=== PATIENT | male | born 1955 | race Caucasian/White ===

== ENCOUNTER 2019-09-19 03:49 | Inpatient (IN) | payer MEDICARE, SELFPAY ==
[2019-09-19] VITALS (8 sets, daily range): BP systolic 139–158; BP diastolic 76–96; PULSE 73–101; RESP 16–24; TEMP 36.3–37.2; O2SAT 90–98; BMI 33.7
--- NOTE | ~2019-09-19 | CT_ITS ---
EXAMINATION: CT abdomen pelvis w con DATE: 09/19/2019 05:08 INDICATION: Left-sided abdominal pain TECHNIQUE: Computed tomography (CT) of the abdomen and pelvis was performed with 100 cc Omnipaque 350 intravenous contrast. Automated exposure control and iterative reconstruction technique were employe d. Exam dose: 1296.68 mGy-cm total exam DLP. COMPARISON: 10/31/2014 CT abdomen pelvis FINDINGS: There is atelectasis involving both lung bases, including lingula and both lower lobes. Normal heart size. No pericardial or pleural effusion. Diffuse hepatic steatosis. No hepatic, splenic or pancreatic space-occupying mass lesion is evident. The gallbladder is distended but there is no gallbladder wall thickening. There is peripancreatic fluid and stranding and fluid along the right anterior pararenal fascia duode num.. There is heterogeneous enhancement of the pancreas, especially in the pancreatic head and uncin ate process but no definite areas of nonenhancement suggesting necrosis. No pseudocyst is identified. No bile duct or pancreatic duct dilatation. Normal morphology of the adrenal glands. No renal mass lesion or urinary tract calculus or hydrourete ronephrosis. The urinary bladder and prostate gland are unremarkable. There is atherosclerotic calcification of the abdominal aorta and iliac arteries but no aneurysm. No intraperitoneal or retroperitoneal or pelvic mass lesion or adenopathy or ascites is noted otherwi se. Mild diverticulosis of the left and right colon; no CT evidence of diverticulitis. Normal appendix. No suspicious osteolytic or osteoblastic lesions are noted. Prominent degenerative disc disease at L4 -5 and particularly L5-S1. Diffuse idiopathic skeletal hyperostosis of the thoracolumbar spine. IMPRESSION: Acute pancreatitis Diffuse hepatic steatosis Diverticulosis of the colon; no CT evidence of diverticulitis Reviewed, dictated and finalized at [facility]. Reviewed, dictated and finalized at location [facility]. H HANDLE ASSEMBLER
--- NOTE | ~2019-09-19 | XR_ITS ---
EXAMINATION: XR abdomen/kub 1V DATE: 09/20/2019 14:44 INDICATION: Abdominal distention. Acute pancreatitis. TECHNIQUE: A supine view of the abdomen on 2 radiographs was obtained. COMPARISON: CT dated 09/19/2019 FINDINGS: No dilated loops of gas-filled bowel. Couple phleboliths in the right hemipelvis. Severe lumbar spond ylosis. IMPRESSION: 1. Nonspecific nonobstructive bowel gas pattern. Reviewed, dictated and finalized at location [facility]. NOMY RESEARCH MANAGER
--- NOTE | ~2019-09-19 | US_ITS ---
EXAMINATION: US right upper quadrant EXAM DATE: 09/19/2019 07:49 INDICATION: Pancreatitis. Clinical concern for gallstones. TECHNIQUE: Multiple grayscale and Doppler images of the abdomen right upper quadrant were obtained (b y a technologist who performed the scan) and subsequently reviewed. There is no prior study for dima rader. FINDINGS: Poorly visualized pancreas. Mildly echogenic liver parenchyma, hepatic steatosis. There are no foca l liver lesions identified. There is no evidence of intrahepatic biliary duct dilation. Portal mattie ous flow was seen in the hepatopedal, normal direction and has normal Doppler waveform. No right-maricarmen ed hydronephrosis. Common bile duct measures 3 mm, which is normal. The gallbladder is moderately distended with borderl ine gallbladder wall thickening, could be reactive given stated history of pancreatitis. No calcified cholelithiasis identified. Probably some gallbladder sludge. Technologist performing exam reports p hima did not demonstrate sonographic Man's sign. Please note that this sign is less reliable in patients who have received pain medication. IMPRESSION: 1. Hepatic steatosis. 2. Borderline gallbladder wall thickness probably reactive. 3. Possible gallbladder sludge. No stones. Reviewed, dictated and finalized at location B. NCIAL PROFESSIONAL
--- NOTE | 2019-09-19 04:14 | ED.ABDPAIN ---
HPI - Abdominal Pain General Chief Complaint: Abdominal Pain Stated Complaint: LLQ abd pain Time Seen by Provider: 09/19/19 03:52 Source: patient Mode of arrival: ambulatory Limitations: no limitations History of Present Illness HPI narrative: 63 yo male with h/o chronic pain syndrome who presents with c/o severe left abdominal pain. Patient states at 11 pm last night he develop pain to entire lower abdomen. He states his pain has continued to worsen and his pain is now localized to left lower abdominal pain. Patient also reports he has pain is left lower back. He denies dysuria or hematuria. HE denies vomiting, diarrhea or constipation. He denies history of diverticulitis or kidney stones. He take oxycontin 30 mg BID and his last took his dose at 6 pm last night. MD elicited complaint: abdominal pain Onset (ago): hour(s) (5) Pain Consistency: constant Location: LUQ and LLQ Severity: severe Quality: cramping and stabbing Radiation: LUQ Exacerbating factors: movement Related Data Home Medications Medication Instructions Recorded Confirmed azelastine 0.05 % eye drops 1 drop EACH EYE BID 07/18/19 azelastine-fluticasone 137 mcg-50 1 spray NASAL BID 07/18/19 mcg/spray nasal spray duloxetine 60 mg capsule,delayed 60 mg PO DAILY 07/18/19 release gabapentin 600 mg tablet 600 mg PO TID 07/18/19 nortriptyline 10 mg capsule 10 mg PO HS 07/18/19 simvastatin 40 mg tablet 40 mg PO BID 07/18/19 oxycodone [OxyContin] 30 mg PO Q12H 09/19/19 Allergies Allergy/AdvReac Type Severity Reaction Status Date / Time pollen extracts Allergy Unknown Itchy eyes Verified 07/18/19 13:19 Review of Systems Review of Systems: All systems reviewed & are unremarkable except as noted in HPI and below Constitutional: Constitutional: Denies chills and Denies fever(s) Respiratory: Respiratory: Denies cough and Denies dyspnea Gastrointestinal: Gastrointestinal: Reports abdominal pain, Denies nausea and Denies vomiting Genitourinary: Genitourinary: Denies hematuria, Denies oliguria, Denies dysuria and Denies urinary frequency Musculoskeletal: Musculoskeletal: Reports back pain PMFSH Social History Social History Smoking status: Never smoker Alcohol intake: never Gender identity (if verbalized by the patient): Male Exam Const: General: alert and acute distress (patient writhing in pain , pale cool) Orientation/consciousness: patient oriented x3 Eyes: Conjunctivae: conjunctivae normal Pupils: Equal, round and reactive pupils present EOM: EOMs intact bilaterally Chest: Chest palpation & inspection: normal inspection of the chest and no tenderness Resp: Effort & Inspection: normal respiratory effort Auscultation: clear to auscultation bilaterally Cardio: Rate: regular rate Rhythm: regular rhythm Heart sounds: no murmurs GI: Inspection: distended GI Palp: Yes Soft to palpation, Yes Tenderness to palpation present (GI) (LUQ, LLQ), No Guarding due to palpation present (GI) and No Rebound tenderness present Auscultation: Hypoactive bowel sounds present Skin: General skin exam: pallor Neuro: General: patient oriented x3 and moves all extremities Course Consultations Consultation #1: Dr. Mccormack, hospitalist accepts patient to service for pancreatitis. Date: 09/19/19 Time: 05:48 Vital Signs Vital signs: Vital Signs Temperature 97.6 F 09/19/19 03:54 Pulse Rate 78 09/19/19 03:54 Respiratory Rate 24 H 09/19/19 03:54 Blood Pressure 158/85 H 09/19/19 03:54 Pulse Oximetry 96 09/19/19 03:54 Temperature 99.0 F 09/19/19 04:00 Pulse Rate 80 09/19/19 04:00 Respiratory Rate 22 H 09/19/19 05:41 Blood Pressure 145/76 H 09/19/19 06:27 Pulse Oximetry 98 09/19/19 05:41 MDM - Abdominal Pain Lab Data Attestation: I reviewed the patient's lab results. Result diagrams: 09/19/19 04:07 09/19/19 05:00
[2019-09-19 04:15] LABS: Basophils Percent Auto 0.3 % (0.2-1.2); Eosinophils Absolute Auto 0.1 K/mm3 (0-0.3); Eosinophils Percent Auto 1.2 % (0-4.4); Hematocrit 48.5 % (42.0-52.0); Hemoglobin 14.9 g/dL (14.0-18.0); Immature Granulocyte Absolute 0.03 K/mm3 (0.00-0.031); Immature Granulocyte Percent A 0.3 % (0-0.5); Lymphocytes Percent Auto 23.1 % (18.3-44.2); Mean Corpuscular HGB Conc 30.7 g/dl (32-36); Mean Corpuscular Hemoglobin 27.7 pg (26-34); Mean Corpuscular Volume 90.1 fl (80-100); Mean Platelet Volume 10.1 fl (7.4-10.4); Monocytes Absolute Auto 0.8 K/mm3 (0.1-0.6); Monocytes Percent Auto 8.2 % (2.6-8.5); Neutrophils Absolute Auto 6.4 K/mm3 (1.3-6.7); Neutrophils Percent Auto 66.9 % (45.5-73.1); Platelet Count Result 228 k/mm3 (150-375); Red Blood Count 5.38 M/mm3 (4.6-6.20); Red Cell Distribution Width 14.7 % (11.5-14.5); White Blood Count 9.5 K/mm3 (4.5-10.0)
[2019-09-19] MEDS: LACTATED RINGERS 1,000 ML 999 ML IV CONT (04:18)
[2019-09-19] MEDS: ONDANSETRON INJ 4 MG/2 ML VIAL IV PUSH ×2 (04:19→12:13)
[2019-09-19] MEDS: HYDROMORPHONE HCL 1 MG/ML INJ IV PUSH ×4 (04:20→09:15)
[2019-09-19 04:21] LABS: Add Urine Microscopic? YES; Appearance Urine Clear (Clear); Bilirubin Urine Negative (Negative); Blood Urine Negative (Negative); Color Urine Yellow (Yellow); Glucose Urine UA 3+ mg/dL (Negative); Ketones Urine Negative (Negative); Leukocyte Esterase Ur Negative LEU/UL (Negative); Mucus Urine Rare /lpf; Nitrate Urine Negative (Negative); Protein Urine Negative (Negative); RBC Urine 0-2 /hpf (0-2); Squamous Epithelial Cell Urine Rare /hpf (Few); Urobilinogen Urine Negative mg/dL (<2.0); WBC Urine 0-3 /hpf
[2019-09-19 04:31] LABS: Specific Grav Ur 1.035 (1.001-1.035)
[2019-09-19 05:03] LABS: Blood Urea Nitrogen 12 mg/dL (8-26); Estimated CRCL calculation 118 ml/min; Estimated Glomerular Filt Rate > 60
[2019-09-19 05:29] LABS: Lipase 25812 U/L (23-300)
[2019-09-19 05:30] LABS: Alanine Aminotransferase 168 U/L (4-50); Albumin Level 4.4 g/dL (3.5-5.1); Alkaline Phosphatase 133 U/L (38-126); Aspartate Amino Transferase 361 U/L (17-59); Bilirubin,Total 0.6 mg/dL (0.2-1.3); Blood Urea Nitrogen 13 mg/dL (9-20); Calcium 9.3 mg/dL (8.4-10.2); Carbon Dioxide 29 mmol/L (22-30); Chloride 99 mmol/L (98-107); Estimated CRCL calculation 136 ml/min; Estimated Glomerular Filt Rate > 60; Glucose 211 mg/dL (75-110); Potassium 3.6 mmol/L (3.4-5.0); Sodium 140 mmol/L (137-145)
--- NOTE | 2019-09-19 06:55 | ADMGEN ---
This patient, Stevo Solomon, was admitted to [facility] Surg Room 324-01. Patient/family oriented to hospital policies and general routines including ID bracelet, bed and alarms, visiting hours, pain management, procedures, bathroom and other care routines, personal items, smoking policy, room service/diet, and visiting hours. Valuables list has been completed. Information on how to activate the Rapid Response Team has been discussed. Patient/Family are encouraged to report perceived risks to care and to ask questions if they do not understand what they are told or what they should do.
[2019-09-19] MEDS: LACTATED RINGERS 1,000 ML 125 ML IV CONT ×2 (10:50→18:30)
[2019-09-19 11:56] LABS: Magnesium 1.6 mg/dL (1.6-2.3)
[2019-09-19] MEDS: HYDROMORPHONE HCL 2 MG/ML VIAL IV PUSH ×4 (12:07→22:29)
--- NOTE | 2019-09-19 14:54 | WPDGICN ---
Assessment and Plan Additional Plan This is a 63-year-old white male patient I am asked to see at the request of the hospitalist. Dr. Lopez. Patient in usual state of health till last evening at 10:00 a.m. he has had sudden onset of abdominal pain. Pain was extremely intense predominantly in the left side of his abdomen this prompted him to go to the emergency room. In the emergency room marked elevation of the lipase was noted. CT scan confirmed pancreatitis. Patient has never had pancreatitis before. He has no known history of gallstones. He denies alcohol intake. Past medical history is significant for chronic back pain. He has a history of diabetes. He has been treated for GE reflux. Had a colonoscopy that was unremarkable in August of 2018. Has been treated for perianal dermatitis. With good response to Flagyl. No known drug allergies. Current medications include aspirin. Metformin. Duloxetine. Gabapentin. Nortriptyline. Omeprazole 20 mg p.o. b.i.d.. OxyContin. And simvastatin. There have been no recent changes in his medications. Family history is significant his father had gallstones. Physical exam reveals him to be alert. He is anicteric. HEENT exam unremarkable. Lungs are clear to auscultation and percussion. Heart is without murmur or extra sounds. Abdomen is somewhat overweight. Bowel sounds are present abdomen is soft with no organomegaly. He has some tenderness predominantly in the left abdomen. Digital rectal exam is deferred. Laboratory work reveals CBC to be unremarkable. Electrolytes are unremarkable. Lipase 39928, total bilirubin 0.6 AST 361, ALT 168, alk-phos 133. CT scan suggest pancreatitis. Ultrasound reveals hepatic steatosis. No gallstones are identified. Impression 1. Acute pancreatitis. Most likely idiopathic in nature. I cannot exclude medications contributing in some fashion however. He has had no recent change in medications. 2. Elevated LFTs. Most likely related to his acute pancreatitis. Will continue to monitor his serum transaminases closely. 3. Chronic back pain. 4. Diabetes mellitus. Plan is for supportive care. IV fluid rehydration strongly encourage. Continue to monitor LFTs. Pain control at this point. I would keep patient NPO for tonight. Only advanced diet after nausea has lessened some period we will follow with you during this hospital stay. GI Consult Note Consult date/time: 09/19/19 14:54 HPI: Stevo Solomon is a 63 year old male [facility] Social History Social History Smoking status: Never smoker Alcohol intake: never Substance use: never Gender identity (if verbalized by the patient): Male Spiritual care concerns: No Agree to blood products: Yes Meds Home Medications and Allergies Home Medications Medication Instructions Recorded Confirmed Type azelastine 0.05 % eye drops 1 drop EACH EYE BID PRN 07/18/19 History azelastine-fluticasone 137 mcg-50 1 spray NASAL BID PRN 07/18/19 History mcg/spray nasal spray duloxetine 60 mg capsule,delayed 60 mg PO DAILY 07/18/19 History release gabapentin 600 mg tablet 600 mg PO TID 07/18/19 History nortriptyline 10 mg capsule 30 mg PO HS 07/18/19 09/19/19 History simvastatin 40 mg tablet 40 mg PO HS 07/18/19 09/19/19 History canagliflozin 150 mg-metformin 1 tablet PO ONCE #90 tablet 08/28/19 Rx 1,000 mg tablet aspirin [Adult Low Dose Aspirin] 81 mg PO DAILY 09/19/19 09/19/19 History omeprazole 20 mg PO BID 09/19/19 09/19/19 History oxycodone [OxyContin] 30 mg PO Q12H 09/19/19 09/19/19 History Allergies Allergy/AdvReac Type Severity Reaction Status Date / Time pollen extracts Allergy Unknown Itchy eyes Verified 07/18/19 13:19 Vital Signs Vital Signs - 24 hr 09/19/19 03:54 09/19/19 04:00 09/19/19 05:41 Temperature 36.4 C 37.2 C Pulse Rate 78 80 Respiratory Rate 24 H 16 22 H Blood Pressure 158/
--- NOTE | 2019-09-19 16:26 | PM.IMHP ---
H&P: HPI History of Present Illness Chief complaint: acute pancreatitis Narrative: Stevo Solomon is a 63 year old male With past medical history of occipital neuralgia for which patient is taking 30 mg OxyContin twice a day, diabetes and depression, patient states he was doing fine lying in his bed reading the book suddenly he developed the left-sided abdominal pain pain was quite severe denies any associated symptoms of nausea or vomiting patient presented emergency department further evaluation his lipase level were and 25,[address] scan of abdomen showed acute pancreatitis without necrosis, and started on IV fluids pain management, patient still having pain on and off what he describes likely spasm we have consulted GI for further recommendation as patient is more on the left side other than epigastric associated with a acute pancreatitis, patient had a colonoscopy in August 2018 essentially normal Review of Systems Review of Systems: All systems reviewed & are unremarkable except as noted in HPI and below PMFSH Social History Social History (Reviewed 07/18/19 @ 13:19 by Rosalind Valladares [facility]) Smoking status: Never smoker Alcohol intake: never Substance use: never Gender identity (if verbalized by the patient): Male Spiritual care concerns: No Agree to blood products: Yes Meds Home Medications and Allergies Home Medications Medication Instructions Recorded Confirmed Type azelastine 0.05 % eye drops 1 drop EACH EYE BID PRN 07/18/19 09/19/19 History azelastine-fluticasone 137 mcg-50 1 spray NASAL BID PRN 07/18/19 09/19/19 History mcg/spray nasal spray duloxetine 60 mg capsule,delayed 60 mg PO DAILY 07/18/19 09/19/19 History release gabapentin 600 mg tablet 600 mg PO TID 07/18/19 09/19/19 History nortriptyline 10 mg capsule 30 mg PO HS 07/18/19 09/19/19 History simvastatin 40 mg tablet 40 mg PO HS 07/18/19 09/19/19 History aspirin [Adult Low Dose Aspirin] 81 mg PO DAILY 09/19/19 09/19/19 History canagliflozin-metformin [Invokamet] 1 tablet PO DAILY 09/19/19 09/19/19 History omeprazole 20 mg PO BID 09/19/19 09/19/19 History oxycodone [OxyContin] 30 mg PO Q12H 02/11/20 02/11/20 History Allergies Allergy/AdvReac Type Severity Reaction Status Date / Time pollen extracts Allergy Unknown Itchy eyes Verified 07/18/19 13:19 Vital Signs Vital Signs - 24 hr 09/19/19 03:54 09/19/19 04:00 09/19/19 05:41 Temperature 97.6 F 99.0 F Pulse Rate 78 80 Respiratory Rate 24 H 16 22 H Blood Pressure 158/85 H 143/96 H 149/88 H Pulse Oximetry 96 95 98 09/19/19 06:27 09/19/19 06:45 09/19/19 14:00 Temperature 97.4 F L 98.1 F Pulse Rate 73 83 Respiratory Rate 22 H 16 Blood Pressure 145/76 H 144/86 H 144/77 H Pulse Oximetry 95 91 Exam Const: General: comfortable and no acute distress HENMT: General nose exam: Normal nares present Mouth: Yes moist mucous membranes Eyes: General: appearance normal, both eyes and all related structures Sclera: sclerae normal Neck: Neck: supple Resp: Effort & Inspection: normal respiratory effort Auscultation: clear to auscultation bilaterally Cardio: Rate: regular rate Rhythm: regular rhythm GI: Other: Bowel sounds are positive patient is tender on the left side Skin: General skin exam: normal color and no rashes or lesions noted Neuro: Speech: normal speech Sensory Exam: normal sensation Extrem: General: normal to inspection Psych: Affect: Anxious affect present H&P: Results Labs Labs: Short CBC 09/19/19 Range/Units 04:07 WBC 9.5 (4.5-10.0) K/mm3 Hgb 14.9 (14.0-18.0) g/dL Hct 48.5 (42.0-52.0) % Plt Count 228 (150-375) k/mm3 [facility] 09/19/19 09/19/19 04:08 05:00 Sodium 140 Potassium 3.6 Chloride 99 Carbon Dioxide 29 BUN 13 12 Creatinine 0.60 L 0.70 Glucose 211 H Calcium 9.3 Liver Function 09/19/19 Range/Units 04:08 Total Bilirubin 0.6 (0.2-1.3) mg/dL AST 361 H (17-59) U/L
[2019-09-19 18:42] LABS: Glucose Point of Care 156 (65-105)
[2019-09-20] MEDS: LACTATED RINGERS 1,000 ML 125 ML IV CONT ×3 (01:22→23:44)
[2019-09-20] MEDS: HYDROMORPHONE HCL 2 MG/ML VIAL IV PUSH ×7 (01:25→21:07)
[2019-09-20 06:00] VITALS: BP 158/65; PULSE 72; RESP 20; TEMP 37.2; O2SAT 100
[2019-09-20 06:28] LABS: Basophils Percent Auto 0.1 % (0.2-1.2); Hematocrit 50.8 % (42.0-52.0); Hemoglobin 16.5 g/dL (14.0-18.0); Immature Granulocyte Absolute 0.05 K/mm3 (0.00-0.031); Immature Granulocyte Percent A 0.3 % (0-0.5); Lymphocytes Absolute Auto 1.18 K/mm3 (0.9-3.2); Lymphocytes Percent Auto 8.1 % (18.3-44.2); Mean Corpuscular HGB Conc 32.5 g/dl (32-36); Mean Corpuscular Hemoglobin 28.4 pg (26-34); Mean Corpuscular Volume 87.3 fl (80-100); Mean Platelet Volume 9.7 fl (7.4-10.4); Monocytes Absolute Auto 1.1 K/mm3 (0.1-0.6); Monocytes Percent Auto 7.2 % (2.6-8.5); Neutrophils Absolute Auto 12.3 K/mm3 (1.3-6.7); Neutrophils Percent Auto 84.3 % (45.5-73.1); Platelet Count Result 233 k/mm3 (150-375); Red Blood Count 5.82 M/mm3 (4.6-6.20); Red Cell Distribution Width 15.8 % (11.5-14.5); White Blood Count 14.7 K/mm3 (4.5-10.0)
[2019-09-20 06:50] LABS: Alanine Aminotransferase 124 U/L (4-50); Albumin Level 3.9 g/dL (3.5-5.1); Alkaline Phosphatase 76 U/L (38-126); Aspartate Amino Transferase 86 U/L (17-59); Bilirubin,Total 0.7 mg/dL (0.2-1.3); Blood Urea Nitrogen 15 mg/dL (9-20); Calcium 8.4 mg/dL (8.4-10.2); Carbon Dioxide 30 mmol/L (22-30); Chloride 98 mmol/L (98-107); Estimated CRCL calculation 119 ml/min; Estimated Glomerular Filt Rate > 60; Glucose 133 mg/dL (75-110); Potassium 4.6 mmol/L (3.4-5.0); Sodium 138 mmol/L (137-145)
[2019-09-20 07:14] LABS: Lipase 2427 U/L (23-300)
[2019-09-20 08:00] VITALS: PULSE 72; RESP 20; O2SAT 100
--- NOTE | 2019-09-20 10:02 | WPDGIPROGNO ---
Progress Note: A&P Additional Plan Patient continues to notice rather significant abdominal pain. He gets significant relief with pain medications. No recent bowel movements. Physical exam reveals abdomen to be obese. Bowel sounds are present but decreased. Mild distention. Mild diffuse tenderness. No masses palpable. Labs revealed up lipase 2427, AST 86, ALT 127, WBC 14.7, hemoglobin 16.5 BUN 15, creatinine 0.7 Impression 1. Acute pancreatitis. This appears to be idiopathic. No specific precipitating event identified. Plan is for supportive care. IV fluid rehydration. Pain control. We will follow with you during this hospital stay . Subjective Date/time seen: 09/20/19 10:02 Objective Data Vital Signs Vital Signs: Vital Signs - 24 hr 09/19/19 14:00 09/19/19 20:42 09/19/19 22:00 Temperature 36.7 C 36.6 C Pulse Rate 83 101 H 100 Respiratory Rate 16 18 18 Blood Pressure 144/77 H 139/79 Pulse Oximetry 91 98 90 09/20/19 06:00 Temperature 37.2 C Pulse Rate 72 Respiratory Rate 20 Blood Pressure 158/65 H Pulse Oximetry 100 Intake/Output Intake/Output: Intake & Output 09/17/19 09/18/19 09/19/19 09/20/19 23:59 23:59 23:59 23:59 Intake Total 1000 1538 Output Total 4 Balance 1000 1534 Meds/Results Medications: Active Medications Generic Name Dose Route Start Last Admin Trade Name Freq PRN Reason Stop Dose Admin Hydromorphone HCl 2 mg 09/19/19 11:43 09/20/19 07:42 Dilaudid Inj IV PUSH 2 mg Q3H PRN Administration Pain Rated 7-10 Lactated Ringer's 1,000 mls @ 125 mls/hr 09/19/19 05:55 09/20/19 06:37 Lr - Lactated Ringers Iv IV CONT 125 mls/hr .Q8H MARU Infusion Ondansetron HCl 4 mg 09/19/19 05:53 09/19/19 12:13 Zofran Inj IV PUSH 4 mg Q4H PRN Administration Nausea Radiology Results: ITS Impressions Abdomen/Pelvis CT 09/19/19 06:46 IMPRESSION: Acute pancreatitis Diffuse hepatic steatosis Diverticulosis of the colon; no CT evidence of diverticulitis Upper Quadrant Ultrasound 09/19/19 08:11 IMPRESSION: 1. Hepatic steatosis. 2. Borderline gallbladder wall thickness probably reactive. 3. Possible gallbladder sludge. No stones. Labs Labs: Laboratory Results - last 24 hr 09/19/19 09/19/19 09/20/19 11:31 18:38 06:14 WBC 14.7 H RBC 5.82 Hgb 16.5 Hct 50.8 MCV 87.3 MCH 28.4 MCHC 32.5 RDW 15.8 H Plt Count 233 MPV 9.7 Immature Gran % (Auto) 0.3 Neut % (Auto) 84.3 H Lymph % (Auto) 8.1 L Warrick % (Auto) 7.2 Eos % (Auto) 0.0 Baso % (Auto) 0.1 L Lymph # (Auto) 1.18 Warrick # (Auto) 1.1 H Eos # (Auto) 0.0 Baso # (Auto) 0.0 Abs Immat Gran (auto) 0.05 H Absolute Neuts (auto) 12.3 H Absolute Nucleated RBC 0.0 Nucleated RBC % 0.0 Sodium Potassium Chloride Carbon Dioxide BUN Creatinine Estim Creat Clear Calc Estimated GFR Glucose POC Capillary Glucose 156 H Calcium Magnesium 1.6 Total Bilirubin AST ALT Alkaline Phosphatase Total Protein Albumin Lipase 09/20/19 06:14 WBC RBC Hgb Hct MCV MCH MCHC RDW Plt Count MPV Immature Gran % (Auto) Neut % (Auto) Lymph % (Auto) Warrick % (Auto) Eos % (Auto) Baso % (Auto) Lymph # (Auto) Warrick # (Auto) Eos # (Auto) Baso # (Auto) Abs Immat Gran (auto) Absolute Neuts (auto) Absolute Nucleated RBC Nucleated RBC % Sodium 138 Potassium 4.6 Chloride 98 Carbon Dioxide 30 BUN 15 Creatinine 0.70 Estim Creat Clear Calc 119 Estimated GFR > 60 Glucose 133 H POC Capillary Glucose Calcium 8.4 Magnesium Total Bilirubin 0.7 AST 86 H ALT 124 H Alkaline Phosphatase 76 Total Protein 7.0 Albumin 3.9 Lipase 2427 H
[2019-09-20 12:22] LABS: Glucose Point of Care 132 (65-105)
[2019-09-20 14:00] VITALS: BP 135/81; PULSE 101; RESP 20; TEMP 37.2; O2SAT 91
--- NOTE | 2019-09-20 14:08 | PM.IMPN ---
Progress Note: A&P Assessment and Plan (1) Acute pancreatitis: Qualifiers: Acute pancreatitis complication: unspecified Pancreatitis type: unspecified pancreatitis type Qualified Code(s): K85.90 - Acute pancreatitis without necrosis or infection, unspecified Code(s): K85.90 - Acute pancreatitis without necrosis or infection, unspecified Status: Acute Assessment and Plan: Stevo Solomon is a 63 year old male curremtly npo with iv fluids for acute pancreatitis, monitoring lipase levels, DR Anna tompkins (2) Occipital neuralgia: Code(s): M54.81 - Occipital neuralgia Status: Acute Assessment and Plan: Patient is taking OxyContin 30 mg b.i.d. patient is NPO be giving patient a lot did to mg every 3 hours as needed (3) Type 2 diabetes mellitus with diabetic polyneuropathy, without long-term current use of insulin: Code(s): E11.42 - Type 2 diabetes mellitus with diabetic polyneuropathy Status: Acute Assessment and Plan: Patient is NPO will monitor with sliding scale (4) Gastro-esophageal reflux disease without esophagitis: Code(s): K21.9 - Gastro-esophageal reflux disease without esophagitis Status: Acute Assessment and Plan: Will start the patient on PPI (5) Benign hypertension: Code(s): I10 - Essential (primary) hypertension Status: Acute Assessment and Plan: Will monitor patient blood pressure and plan (6) Abdominal distension: Code(s): R14.0 - Abdominal distension (gaseous) Status: Acute Assessment and Plan: KUB, to rule out ileus pt is already NPO with iv fluids Subjective Date/time seen: 09/20/19 14:08 Interval history: 63 year old man admitted with acute pancreatitis CT scan of abdomen showed acute pancreatitis without necrosis, lipase elevated at 2427, no history of drinking alcholol, us gb was shows possible sludge. Dr Anna tompkins, known history of chronic back pain. He has a history of diabetes. He has been treated for GERD. Pt had a colonoscopy before. Today pt abdomen looks distended KUB orderd, Pt takes invokamet for Dm ? i dont think that causes pancreatitis. I alvin order triglycerides in this patient. Review of Systems Review of Systems: All systems reviewed & are unremarkable except as noted in HPI and below Cardiovascular: Cardiovascular: Reports no additional cardiovascular complaints Respiratory: Respiratory: Reports no additional respiratory complaints Gastrointestinal: Comments: abdominal distension Musculoskeletal: Musculoskeletal: Reports no additional musculoskeletal complaints Exam Const: General: comfortable and no acute distress HENMT: General nose exam: Normal nares present Mouth: Yes moist mucous membranes Eyes: General: appearance normal, both eyes and all related structures Sclera: sclerae normal Neck: Neck: supple Resp: Effort & Inspection: normal respiratory effort Auscultation: clear to auscultation bilaterally Cardio: Rate: regular rate Rhythm: regular rhythm Skin: General skin exam: normal color and no rashes or lesions noted Neuro: Speech: normal speech Sensory Exam: normal sensation Extrem: General: normal to inspection Psych: Affect: Anxious affect present Objective Data Vital Signs Vital Signs: Vital Signs - 24 hr 09/19/19 20:42 09/19/19 22:00 09/20/19 06:00 Temperature 36.6 C 37.2 C Pulse Rate 101 H 100 72 Respiratory Rate 18 18 20 Blood Pressure 139/79 158/65 H Pulse Oximetry 98 90 100 09/20/19 08:00 Temperature Pulse Rate 72 Respiratory Rate 20 Blood Pressure Pulse Oximetry 100 Intake/Output Intake/Output: Intake & Output 09/17/19 09/18/19 09/19/19 09/20/19 23:59 23:59 23:59 23:59 Intake Total 1000 1538 Output Total 4 Balance 1000 1534 Meds/Results Medications: Active Medications Generic Name Dose Route Start Last Admin Trade Name Freq PRN Reason Stop Dose Admin Hydr
[2019-09-20] MEDS: ONDANSETRON INJ 4 MG/2 ML VIAL IV PUSH (17:47)
[2019-09-20 19:59] LABS: Glucose Point of Care 122 (65-105)
[2019-09-20 22:00] VITALS: BP 143/76; PULSE 102; RESP 20; TEMP 36.6; O2SAT 91
[2019-09-21] MEDS: HYDROMORPHONE HCL 2 MG/ML VIAL IV PUSH ×5 (00:09→12:29)
[2019-09-21 00:53] LABS: Glucose Point of Care 118 (65-105)
[2019-09-21 05:46] LABS: Glucose Point of Care 99 (65-105)
[2019-09-21 06:00] VITALS: BP 127/69; PULSE 100; RESP 20; TEMP 36.6; O2SAT 94
[2019-09-21 06:55] LABS: Hematocrit 45.5 % (42.0-52.0); Hemoglobin 14.2 g/dL (14.0-18.0); Mean Corpuscular HGB Conc 31.2 g/dl (32-36); Mean Corpuscular Volume 89.7 fl (80-100); Mean Platelet Volume 10.3 fl (7.4-10.4); Platelet Count Result 220 k/mm3 (150-375); Red Blood Count 5.07 M/mm3 (4.6-6.20); Red Cell Distribution Width 15.8 % (11.5-14.5); White Blood Count 13.1 K/mm3 (4.5-10.0)
[2019-09-21 07:12] LABS: Alanine Aminotransferase 70 U/L (4-50); Albumin Level 3.5 g/dL (3.5-5.1); Alkaline Phosphatase 70 U/L (38-126); Aspartate Amino Transferase 45 U/L (17-59); Bilirubin,Total 0.7 mg/dL (0.2-1.3); Blood Urea Nitrogen 17 mg/dL (9-20); Calcium 8.2 mg/dL (8.4-10.2); Carbon Dioxide 29 mmol/L (22-30); Chloride 98 mmol/L (98-107); Estimated CRCL calculation 137 ml/min; Estimated Glomerular Filt Rate > 60; Glucose 109 mg/dL (75-110); Lipase 520 U/L (23-300); Sodium 136 mmol/L (137-145)
[2019-09-21 07:13] LABS: Cholesterol 100 mg/dL (0-200); HDL Direct 31 mg/dL; Triglycerides 109 mg/dL (<150)
[2019-09-21 07:24] LABS: LDL Cholesterol Direct 50 mg/dL
[2019-09-21] MEDS: LACTATED RINGERS 1,000 ML 125 ML IV CONT ×2 (09:04→17:19)
[2019-09-21] MEDS: ONDANSETRON INJ 4 MG/2 ML VIAL IV PUSH ×2 (09:05→15:36)
--- NOTE | 2019-09-21 10:44 | WPDGIPROGNO ---
Progress Note: A&P Additional Plan Patient continues to complain of significant abdominal pain. He states that has lessened to some degree. He has begun to pass flatus. His abdomen is less painful today. Physical exam reveals her to be alert. Oriented x3. HEENT exam he is anicteric. Lungs are clear to auscultation and percussion. Heart is without murmur or extra sounds. Abdominal exam is somewhat obese. Bowel sounds are present soft diffusely tender. Lipase 520 today has decreased some. LFTs improving. Impression 1. Acute pancreatitis. Appears to be idiopathic in nature. Plan is to continue supportive care. IV fluid rehydration. Allow ice chips in liquids conservatively today. 2. Chronic back pain. 3. Sleep apnea. Plan is to continue IV fluid rehydration and pain control. Slowly reintroduce diet as bowel function returns. Subjective Date/time seen: 09/21/19 10:44 Objective Data Vital Signs Vital Signs: Vital Signs - 24 hr 09/20/19 14:00 09/20/19 22:00 09/21/19 06:00 Temperature 37.2 C 36.6 C 36.6 C Pulse Rate 101 H 102 H 100 Respiratory Rate 20 20 20 Blood Pressure 135/81 143/76 H 127/69 Pulse Oximetry 91 91 94 Intake/Output Intake/Output: Intake & Output 09/18/19 09/19/19 09/20/19 09/21/19 23:59 23:59 23:59 23:59 Intake Total 1000 3170 1060 Output Total 4 Balance 1000 3166 1060 Meds/Results Medications: Active Medications Generic Name Dose Route Start Last Admin Trade Name Freq PRN Reason Stop Dose Admin Hydromorphone HCl 2 mg 09/19/19 11:43 09/21/19 09:21 Dilaudid Inj IV PUSH 2 mg Q3H PRN Administration Pain Rated 7-10 Lactated Ringer's 1,000 mls @ 125 mls/hr 09/19/19 05:55 09/21/19 09:04 Lr - Lactated Ringers Iv IV CONT 125 mls/hr .Q8H MARU Administration Ondansetron HCl 4 mg 09/19/19 05:53 09/21/19 09:05 Zofran Inj IV PUSH 4 mg Q4H PRN Administration Nausea Radiology Results: ITS Impressions Abdomen/Pelvis CT 02/11/20 06:46 IMPRESSION: Acute pancreatitis Diffuse hepatic steatosis Diverticulosis of the colon; no CT evidence of diverticulitis Upper Quadrant Ultrasound 09/19/19 08:11 IMPRESSION: 1. Hepatic steatosis. 2. Borderline gallbladder wall thickness probably reactive. 3. Possible gallbladder sludge. No stones. Abdomen X-Ray 09/20/19 14:44 IMPRESSION: 1. Nonspecific nonobstructive bowel gas pattern. Labs Labs: Laboratory Results - last 24 hr 09/20/19 09/20/19 09/20/19 12:20 19:16 23:46 WBC RBC Hgb Hct MCV MCH MCHC RDW Plt Count MPV Sodium Potassium Chloride Carbon Dioxide BUN Creatinine Estim Creat Clear Calc Estimated GFR Glucose POC Capillary Glucose 132 H 122 H 118 H Calcium Total Bilirubin AST ALT Alkaline Phosphatase Total Protein Albumin Triglycerides Cholesterol LDL Cholesterol Direct HDL Direct Lipase 09/21/19 09/21/19 09/21/19 05:41 06:36 06:36 WBC 13.1 H RBC 5.07 Hgb 14.2 Hct 45.5 MCV 89.7 MCH 28.0 MCHC 31.2 L RDW 15.8 H Plt Count 220 MPV 10.3 Sodium 136 L Potassium 4.0 Chloride 98 Carbon Dioxide 29 BUN 17 Creatinine 0.60 L Estim Creat Clear Calc 137 Estimated GFR > 60 Glucose 109 POC Capillary Glucose 99 Calcium 8.2 L Total Bilirubin 0.7 AST 45 ALT 70 H Alkaline Phosphatase 70 Total Protein 7.0 Albumin 3.5 Triglycerides Cholesterol LDL Cholesterol Direct HDL Direct Lipase 520 H 09/21/19 06:36 WBC RBC Hgb Hct MCV MCH MCHC RDW Plt Count MPV Sodium Potassium Chloride Carbon Dioxide BUN Creatinine Estim Creat Clear Calc Estimated GFR Glucose POC Capillary Glucose Calcium Total Bilirubin AST ALT Alkaline Phosphatase Total Protein Albumin Triglycerides 109 Cholesterol
[2019-09-21 13:42] LABS: Glucose Point of Care 92 (65-105)
--- NOTE | 2019-09-21 13:44 | PM.IMPN ---
Progress Note: A&P Assessment and Plan (1) Acute pancreatitis: Qualifiers: Acute pancreatitis complication: unspecified Pancreatitis type: unspecified pancreatitis type Qualified Code(s): K85.90 - Acute pancreatitis without necrosis or infection, unspecified Code(s): K85.90 - Acute pancreatitis without necrosis or infection, unspecified Status: Acute Assessment and Plan: Stevo Solomon is a 63 year old male, admitted for acute pancreatitis, monitoring lipase levels, DR Anna tompkins, start clear liquid diet (2) Occipital neuralgia: Code(s): M54.81 - Occipital neuralgia Status: Acute Assessment and Plan: Patient is taking OxyContin 30 mg b.i.d., restart home medications (3) Type 2 diabetes mellitus with diabetic polyneuropathy, without long-term current use of insulin: Code(s): E11.42 - Type 2 diabetes mellitus with diabetic polyneuropathy Status: Acute Assessment and Plan: Restart liquid diet, monitor with sliding scale (4) Gastro-esophageal reflux disease without esophagitis: Code(s): K21.9 - Gastro-esophageal reflux disease without esophagitis Status: Acute Assessment and Plan: Will start the patient on PPI (5) Benign hypertension: Code(s): I10 - Essential (primary) hypertension Status: Acute Assessment and Plan: Will monitor patient blood pressure and plan (6) Abdominal distension: Code(s): R14.0 - Abdominal distension (gaseous) Status: Acute Assessment and Plan: KUB normal, no ileus, ordered laxatives Subjective Date/time seen: 09/21/19 13:44 Interval history: 63 year old man admitted with acute pancreatitis CT scan of abdomen showed acute pancreatitis without necrosis, lipase elevated at 2427, no history of drinking alcholol, us gb was shows possible sludge. Dr Anna tompkins, known history of chronic back pain. He has a history of diabetes. He has been treated for GERD. Pt had a colonoscopy before. Today pt abdomen looks mildly distended, KUB did not show ileus, pt adviced to walk more. Laxatives ordered as pts has not opened his bowel for 3 days. Review of Systems Review of Systems: All systems reviewed & are unremarkable except as noted in HPI and below Cardiovascular: Cardiovascular: Reports no additional cardiovascular complaints Respiratory: Respiratory: Reports no additional respiratory complaints Musculoskeletal: Musculoskeletal: Reports no additional musculoskeletal complaints Exam Const: General: comfortable and no acute distress HENMT: General nose exam: Normal nares present Mouth: Yes moist mucous membranes Eyes: General: appearance normal, both eyes and all related structures Sclera: sclerae normal Neck: Neck: supple Resp: Effort & Inspection: normal respiratory effort Auscultation: clear to auscultation bilaterally Cardio: Rate: regular rate Rhythm: regular rhythm GI: Other: Bowel sounds are positive patient is tender on the left side Distended Abdomen Skin: General skin exam: normal color and no rashes or lesions noted Neuro: Speech: normal speech Sensory Exam: normal sensation Extrem: General: normal to inspection Psych: Affect: Anxious affect present Objective Data Vital Signs Vital Signs: Vital Signs - 24 hr 09/20/19 14:00 09/20/19 22:00 09/21/19 06:00 Temperature 37.2 C 36.6 C 36.6 C Pulse Rate 101 H 102 H 100 Respiratory Rate 20 20 20 Blood Pressure 135/81 143/76 H 127/69 Pulse Oximetry 91 91 94 Intake/Output Intake/Output: Intake & Output 09/18/19 09/19/19 09/20/19 09/21/19 23:59 23:59 23:59 23:59 Intake Total 1000 3170 1060 Output Total 4 Balance 1000 3166 1060 Meds/Results Medications: Active Medications Generic Name Dose Route Start Last Admin Trade Name Freq PRN Reason Stop Dose Admin Docusate Sodium 100 mg 09/21/19 12:41 Colace Capsule PO Q12H PRN Constipation Hydromo
[2019-09-21 14:00] VITALS: BP 127/72; PULSE 96; RESP 18; TEMP 36.6; O2SAT 94
[2019-09-21] MEDS: HYDROMORPHONE HCL 2 MG/ML VIAL 3 MG IV PUSH ×2 (15:36→18:49)
[2019-09-21] MEDS: ASPIRIN 81 MG ENTERIC TABLET PO (15:43)
[2019-09-21] MEDS: DULOXETINE 60 MG CAPSULE.DR PO (15:43)
[2019-09-21] MEDS: PANTOPRAZOLE 40 MG TABLET PO (15:43)
[2019-09-21] MEDS: GABAPENTIN 300 MG CAPSULE 600 MG PO ×2 (15:44→22:31)
[2019-09-21 18:58] LABS: Lipase 144 U/L (23-300)
[2019-09-21] MEDS: NORTRIPTYLINE HCL 10 MG CAPSULE 30 MG PO (21:36)
[2019-09-21] MEDS: SIMVASTATIN 20 MG TABLET 40 MG PO (21:36)
[2019-09-21 22:00] VITALS: BP 149/79; PULSE 99; RESP 18; TEMP 36.3; O2SAT 90
[2019-09-22] MEDS: HYDROMORPHONE HCL 2 MG/ML VIAL 3 MG IV PUSH ×3 (03:33→11:18)
[2019-09-22] MEDS: LACTATED RINGERS 1,000 ML 125 ML IV CONT ×2 (04:04→11:18)
[2019-09-22 06:00] VITALS: BP 124/69; PULSE 90; RESP 19; TEMP 36.9; O2SAT 91
[2019-09-22] MEDS: GABAPENTIN 300 MG CAPSULE 600 MG PO ×2 (06:10→14:47)
[2019-09-22 06:21] LABS: Hematocrit 40.9 % (42.0-52.0); Hemoglobin 12.8 g/dL (14.0-18.0); Mean Corpuscular HGB Conc 31.3 g/dl (32-36); Mean Corpuscular Hemoglobin 28.3 pg (26-34); Mean Corpuscular Volume 90.5 fl (80-100); Mean Platelet Volume 9.9 fl (7.4-10.4); Platelet Count Result 208 k/mm3 (150-375); Red Blood Count 4.52 M/mm3 (4.6-6.20); Red Cell Distribution Width 15.4 % (11.5-14.5); White Blood Count 13.2 K/mm3 (4.5-10.0)
[2019-09-22 06:32] LABS: Alanine Aminotransferase 46 U/L (4-50); Albumin Level 3.2 g/dL (3.5-5.1); Alkaline Phosphatase 73 U/L (38-126); Aspartate Amino Transferase 36 U/L (17-59); Bilirubin,Total 0.6 mg/dL (0.2-1.3); Blood Urea Nitrogen 17 mg/dL (9-20); Calcium 8.2 mg/dL (8.4-10.2); Carbon Dioxide 29 mmol/L (22-30); Chloride 93 mmol/L (98-107); Estimated CRCL calculation 137 ml/min; Estimated Glomerular Filt Rate > 60; Glucose 95 mg/dL (75-110); Potassium 4.1 mmol/L (3.4-5.0); Sodium 136 mmol/L (137-145)
[2019-09-22 06:36] LABS: Lipase 48 U/L (23-300)
--- NOTE | 2019-09-22 09:15 | WPDGIPROGNO ---
Progress Note: A&P Additional Plan Patient feeling better today. Passing flatus. No signs of GI bleeding. Abdomen feel softer. Physical exam reveals patient to be alert. Vital signs stable. Better pain relief with pain shots. Abdomen is softer. Bowel sounds are present. Mild epigastric tenderness. Laboratory tests revealed WBC 13.2, hemoglobin 12.8, LFTs have normalized. Lipase now 48. Impression 1. Idiopathic acute pancreatitis. Clinically improving. Plan to advance diet. Increase activity. May discharge when diet tolerated and pain under control. 2. Chronic back pain. Subjective Date/time seen: 09/22/19 09:15 Objective Data Vital Signs Vital Signs: Vital Signs - 24 hr 09/21/19 14:00 09/21/19 22:00 09/22/19 06:00 Temperature 36.6 C 36.3 C L 36.9 C Pulse Rate 96 99 90 Respiratory Rate 18 18 19 Blood Pressure 127/72 149/79 H 124/69 Pulse Oximetry 94 90 91 Intake/Output Intake/Output: Intake & Output 09/19/19 09/20/19 09/21/19 09/22/19 23:59 23:59 23:59 23:59 Intake Total 1000 3170 2300 1550 Output Total 4 Balance 1000 3166 2300 1550 Meds/Results Medications: Active Medications Generic Name Dose Route Start Last Admin Trade Name Freq PRN Reason Stop Dose Admin Aspirin 81 mg 09/21/19 09:00 09/21/19 15:43 Aspirin Ec PO 81 mg DAILY MARU Administration Azelastine HCl 1 spray 09/21/19 14:14 Astelin NASAL 10/21/19 14:15 BID PRN Allergy Symptoms Docusate Sodium 100 mg 09/21/19 12:41 Colace Capsule PO Q12H PRN Constipation Duloxetine HCl 60 mg 09/21/19 09:00 09/21/19 15:43 Cymbalta PO 60 mg DAILY MARU Administration Fluticasone Propionate 1 spray 09/21/19 13:48 Flonase 0.05% Nasal [place] NASAL BID PRN Allergy Symptoms Gabapentin 600 mg 09/21/19 14:10 09/22/19 06:10 Neurontin PO 600 mg Q8HR MARU Administration Hydromorphone HCl 3 mg 09/21/19 12:41 09/22/19 06:34 Dilaudid Inj IV PUSH 3 mg Q3H PRN Administration Pain Rated 7-10 Lactated Ringer's 1,000 mls @ 125 mls/hr 09/19/19 05:55 09/22/19 04:04 Lr - Lactated Ringers Iv IV CONT 125 mls/hr .Q8H MARU Administration Non-Formulary Medication 1 drop 09/21/19 13:48 Azelastine EACH EYE BID PRN Allergic Symptoms Nortriptyline HCl 30 mg 09/21/19 21:00 09/21/19 21:36 Pamelor PO 30 mg HS MARU Administration Ondansetron HCl 4 mg 09/19/19 05:53 09/21/19 15:36 Zofran Inj IV PUSH 4 mg Q4H PRN Administration Nausea Oxycodone HCl 30 mg 09/21/19 21:00 09/21/19 21:41 Oxycontin Sr 12hr PO 30 mg Q12HR MARU Administration Pantoprazole Sodium 40 mg 09/21/19 09:00 09/21/19 15:43 Protonix PO 40 mg QAM MARU Administration Polyethylene Glycol 17 gm 09/22/19 09:00 Miralax PO QAM MARU Simvastatin 40 mg 09/21/19 21:00 09/21/19 21:36 Zocor PO 40 mg HS MARU Administration Radiology Results: ITS Impressions Abdomen/Pelvis CT 09/19/19 06:46 IMPRESSION: Acute pancreatitis Diffuse hepatic steatosis Diverticulosis of the colon; no CT evidence of diverticulitis Upper Quadrant Ultrasound 09/19/19 08:11 IMPRESSION: 1. Hepatic steatosis. 2. Borderline gallbladder wall thickness probably reactive. 3. Possible gallbladder sludge. No stones. Abdomen X-Ray 09/20/19 14:44 IMPRESSION: 1. Nonspecific nonobstructive bowel gas pattern. Labs Labs: Laboratory Results - last 24 hr 09/21/19 09/21/19 09/22/19 12:33 18:42 05:52 WBC 13.2 H RBC 4.52 L Hgb 12.8 L Hct 40.9 L MCV 90.5 MCH 28.3 MCHC 31.3 L RDW 15.4 H Plt Count 208 MPV 9.9 Sodium Potassium Chloride Carbon Dioxide BUN Creatinine Estim Creat Clear Calc Estimated GFR Glucose POC Capillary Glucose 92 Calcium Total Bilirubin AST ALT Alkaline Phosphatase Total Protein Albumin Lipase
[2019-09-22] MEDS: PANTOPRAZOLE 40 MG TABLET PO (09:24)
[2019-09-22] MEDS: DULOXETINE 60 MG CAPSULE.DR PO (09:24)
[2019-09-22] MEDS: polyethylene glycoL 3350 17 GM POWD.PACK PO (09:25)
[2019-09-22] MEDS: ASPIRIN 81 MG ENTERIC TABLET PO (09:25)
--- NOTE | 2019-09-22 12:56 | PM.DS ---
DS: Diagnosis Admitting Diagnosis Admitting Diagnosis: Acute pancreatitis without necrosis or infection, unspecified Discharge Diagnosis (1) Acute pancreatitis: Qualifiers: Acute pancreatitis complication: unspecified Pancreatitis type: unspecified pancreatitis type Qualified Code(s): K85.90 - Acute pancreatitis without necrosis or infection, unspecified Code(s): K85.90 - Acute pancreatitis without necrosis or infection, unspecified Status: Resolved Assessment and Plan: Stevo Solomon is a 63 year old male, admitted for acute pancreatitis, monitoring lipase levels, lipase has come down. Long discussion about causes of pancreatitis, veena is one unfortunately pt has been on this 4 years, he would like to discuss changing the medication with his PCP. TRiglyceride normal, no history of heavy alcholol use or GAllstones. (2) Occipital neuralgia: Code(s): M54.81 - Occipital neuralgia Status: Chronic Assessment and Plan: Patient is taking OxyContin 30 mg b.i.d., restart home medications (3) Type 2 diabetes mellitus with diabetic polyneuropathy, without long-term current use of insulin: Code(s): E11.42 - Type 2 diabetes mellitus with diabetic polyneuropathy Status: Chronic Assessment and Plan: Restart DM diet (4) Gastro-esophageal reflux disease without esophagitis: Code(s): K21.9 - Gastro-esophageal reflux disease without esophagitis Status: Chronic Assessment and Plan: Will start the patient on PPI (5) Benign hypertension: Code(s): I10 - Essential (primary) hypertension Status: Chronic Assessment and Plan: Continue home medications (6) Abdominal distension: Code(s): R14.0 - Abdominal distension (gaseous) Status: Acute Assessment and Plan: KUB normal, no ileus, ordered laxatives likley secondary to constipation, hopeful discharge after bowel movement. Encouraged walking today. DS: Summary Time Spent with Patient Time attestation: Total time spent providing and/or coordinating discharge services:38 minutes on day of discharge Exam Const: General: comfortable and no acute distress HENMT: General nose exam: Normal nares present Mouth: Yes moist mucous membranes Eyes: General: appearance normal, both eyes and all related structures Sclera: sclerae normal Neck: Neck: supple Resp: Effort & Inspection: normal respiratory effort Auscultation: clear to auscultation bilaterally Cardio: Rate: regular rate Rhythm: regular rhythm GI: Other: Bowel sounds are positive, mild abdominal distension Skin: General skin exam: normal color and no rashes or lesions noted Neuro: Speech: normal speech Sensory Exam: normal sensation Extrem: General: normal to inspection Psych: Affect: Anxious affect present DS: Data Data Completed and Pending Labs on day of discharge: Labs from last 24 hours 09/22/19 09/22/19 09/22/19 05:52 05:52 05:52 WBC 13.2 H RBC 4.52 L Hgb 12.8 L Hct 40.9 L MCV 90.5 MCH 28.3 MCHC 31.3 L RDW 15.4 H Plt Count 208 MPV 9.9 Sodium 136 L Potassium 4.1 Chloride 93 L Carbon Dioxide 29 BUN 17 Creatinine 0.60 L Estim Creat Clear Calc 137 Estimated GFR > 60 Glucose 95 POC Capillary Glucose Calcium 8.2 L Total Bilirubin 0.6 AST 36 ALT 46 Alkaline Phosphatase 73 Total Protein 6.0 L Albumin 3.2 L Lipase 48 09/21/19 09/21/19 18:42 12:33 WBC RBC Hgb Hct MCV MCH MCHC RDW Plt Count MPV Sodium Potassium Chloride Carbon Dioxide BUN Creatinine Estim Creat Clear Calc Estimated GFR Glucose POC Capillary Glucose 92 Calcium Total Bilirubin AST ALT Alkaline Phosphatase Total Protein Albumin Lipase 144 Discharge Plan Discharge Attending physician on discharge: Nusrat Mccormack Consulting prov
== END 2019-09-22 17:35 | disposition home or self-care (01) | DRG 440 ==
LOC: ANHED 05:51 → ANH3MEDSUR 06:30
PROVIDERS: Family Medicine; Admitting Provider Family Medicine; Emergency Provider General Practice; PCP Family Medicine; Visit Provider Family Medicine
DX: K85.90 Acute pancreatitis without necrosis or infection, unspecified (principal); M54.81 Occipital neuralgia; E11.42 Type 2 diabetes mellitus with diabetic polyneuropathy; K21.9 Gastro-esophageal reflux disease without esophagitis; I10 Essential (primary) hypertension; R14.0 Abdominal distension (gaseous); F32.9 Major depressive disorder, single episode, unspecified; G47.30 Sleep apnea, unspecified; E66.9 Obesity, unspecified; Z68.33 Body mass index [BMI] 33.0-33.9, adult
CPT/HCPCS: 36415; 74018; 74177; 76705; 80053; 80061; 81001; 83690; 83735; 85025; 85027; 96374; 96375; 96376; 99285; A9270; G0378; J1170; J2405; J7120; Q9967

== ENCOUNTER 2019-09-29 14:55 | Inpatient (IN) | payer MEDICARE, SELFPAY ==
--- NOTE | ~2019-09-29 | CT_ITS ---
EXAMINATION: CT abdomen pelvis w con DATE: 09/29/2019 17:49 INDICATION: Pancreatitis. Increasing pain. TECHNIQUE: Computed tomography (CT) of the abdomen and pelvis was performed with 100 cc Omnipaque 350 intravenous contrast. The dose-length product was 1351.26 mGy-cm. Automated exposure control and ite rative reconstruction technique were employed. COMPARISON: CT dated 09/19/2019 FINDINGS: Small pleural effusions. Bibasilar airspace disease, most likely atelectasis. Small supraumbilical ventral hernia containing fat. The liver, spleen, adrenal glands and right kidne y are unremarkable. There are left renal parapelvic cysts. No hydronephrosis. Nonobstructive bowel ga s pattern. There is increasing fluid and infiltration surrounding the pancreas. The pancreas is normally enhanci ng without evidence for necrosis. No definite pseudocyst formation. No discrete walled off fluid heydi ection to suggest abscess. IMPRESSION: 1. Progression of pancreatitis and surrounding inflammatory change. 2: Bibasilar atelectasis with small effusions. Reviewed, dictated and finalized at location [facility]. [facility]
[2019-09-29 15:06] VITALS: BP 156/75; PULSE 110; RESP 18; TEMP 36.1; O2SAT 95
[2019-09-29 15:23] LABS: Basophils Percent Auto 0.2 % (0.2-1.2); Eosinophils Absolute Auto 0.1 K/mm3 (0-0.3); Eosinophils Percent Auto 0.6 % (0-4.4); Hematocrit 41.9 % (42.0-52.0); Hemoglobin 13.1 g/dL (14.0-18.0); Immature Granulocyte Percent A 0.7 % (0-0.5); Lymphocytes Absolute Auto 1.41 K/mm3 (0.9-3.2); Lymphocytes Percent Auto 9.7 % (18.3-44.2); Mean Corpuscular HGB Conc 31.3 g/dl (32-36); Mean Corpuscular Hemoglobin 27.6 pg (26-34); Mean Corpuscular Volume 88.2 fl (80-100); Mean Platelet Volume 9.4 fl (7.4-10.4); Monocytes Absolute Auto 1.1 K/mm3 (0.1-0.6); Monocytes Percent Auto 7.7 % (2.6-8.5); Neutrophils Absolute Auto 11.8 K/mm3 (1.3-6.7); Neutrophils Percent Auto 81.1 % (45.5-73.1); Platelet Count Result 394 k/mm3 (150-375); Red Blood Count 4.75 M/mm3 (4.6-6.20); Red Cell Distribution Width 15.1 % (11.5-14.5); White Blood Count 14.5 K/mm3 (4.5-10.0)
[2019-09-29 15:32] LABS: Alanine Aminotransferase 27 U/L (4-50); Albumin Level 3.5 g/dL (3.5-5.1); Alkaline Phosphatase 110 U/L (38-126); Aspartate Amino Transferase 36 U/L (17-59); Bilirubin,Total 0.4 mg/dL (0.2-1.3); Blood Urea Nitrogen 7 mg/dL (9-20); Calcium 8.8 mg/dL (8.4-10.2); Carbon Dioxide 33 mmol/L (22-30); Chloride 91 mmol/L (98-107); Estimated CRCL calculation 118 ml/min; Estimated Glomerular Filt Rate > 60; Glucose 128 mg/dL (75-110); Lipase 67 U/L (23-300); Potassium 3.7 mmol/L (3.4-5.0); Sodium 136 mmol/L (137-145)
--- NOTE | 2019-09-29 17:13 | ED.ABDPAIN ---
HPI - Abdominal Pain General Chief Complaint: Abdominal Pain Stated Complaint: abd pain Time Seen by Provider: 09/29/19 17:13 Source: patient Mode of arrival: ambulatory Limitations: no limitations History of Present Illness HPI narrative: The pt is a 63 y/o male who presents to the ED c/o sharp, cramping LLQ ABD pain. Pt rates his pain as 7.5/10, and notes that it radiates up to the RUQ and the back. Pt states that he presented to this hospital 2 weeks ago and was admitted due to pancreatitis. He states that he was discharged one week ago. Pt notes that nothing improves his pain, but eating worsens his pain. Pt has noticed a color change to his stools, with them ranging from a dark nasima to black in color. He denies N/V/D, CP, SOB, dysuria, hematuria, fever, and chills. MD elicited complaint: abdominal pain Pertinent past history: other (Pancreatitis) Pain Consistency: constant Location: LLQ Quality: cramping and sharp Radiation: RUQ and back Exacerbating factors: eating Relieving factors: nothing Associated symptoms: other (Color change in stools ranging from a dark nasima to black in color) Related Data Home Medications Medication Instructions Recorded Confirmed azelastine-fluticasone 137 mcg-50 1 spray NASAL BID PRN 07/18/19 09/29/19 mcg/spray nasal spray duloxetine 60 mg capsule,delayed 60 mg PO DAILY 07/18/19 09/29/19 release gabapentin 600 mg tablet 600 mg PO TID 07/18/19 09/29/19 nortriptyline 10 mg capsule 30 mg PO HS 07/18/19 09/29/19 simvastatin 40 mg tablet 40 mg PO HS 07/18/19 09/29/19 aspirin [Adult Low Dose Aspirin] 81 mg PO DAILY 09/19/19 09/29/19 omeprazole 20 mg PO BID 09/19/19 09/29/19 oxycodone [OxyContin] 30 mg PO Q12H 09/19/19 09/29/19 metformin 1,000 mg PO DAILY 09/29/19 09/29/19 Allergies Allergy/AdvReac Type Severity Reaction Status Date / Time pollen extracts Allergy Unknown Itchy eyes Verified 07/18/19 13:19 Review of Systems Review of Systems: Narrative: Review of Systems Constitutional: Negative for fever and chills. Respiratory: Negative for shortness of breath. Cardiovascular: Negative for chest pain. Gastrointestinal: Positive for sharp, cramping LLQ ABD pain radiating to the RUQ and back. Positive for color change in stool, with it being dark nasima to black in color. Negative for nausea, vomiting, and diarrhea. Genitourinary: Negative for dysuria and hematuria. All systems reviewed & are unremarkable except as noted in HPI and below PMFSH Past Medical History Medical History (Updated 09/30/19 @ 16:59 by Pooja Oconnell PA-C) Acute pancreatitis Benign hypertension Gastro-esophageal reflux disease without esophagitis Mixed hyperlipidemia Obesity, unspecified Obstructive sleep apnea (adult) (pediatric) Occipital neuralgia Submandibular swelling Type 2 diabetes mellitus with diabetic polyneuropathy, without long-term current use of insulin Ventral hernia Surgical History Surgical History H/O ventral hernia repair Family History Family History (Updated 09/30/19 @ 09:39 by Pooja Oconnell PA-C) Father Diabetes mellitus Hypertension Family history of cardiovascular disease Family history of lung cancer Mother Family history of arthritis, Onset Age: 79 Social History Social History (Updated 09/30/19 @ 09:42 by Pooja Oconnell PA-C) Social History: Mr. Solomon lives at home with his . He has no pets. He sees Dr. Chun for primary care. 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 Smoking status: Never smoker Second hand tobacco smoke exposure: Yes Alcohol intake: never Substance use: never Living arrangements: with family Gender identity (if verbalized by the patient): Male Spiritual care concerns: No Agree to blood products: Yes Comments PCP: Dr. Chun Exam Narrative: Exam Narrative: Constitutional: Appears well-develo
[2019-09-29 17:21] VITALS: BP 136/84; PULSE 96; RESP 20; O2SAT 94
[2019-09-29 17:40] LABS: Add Urine Microscopic? YES; Appearance Urine Clear (Clear); Bilirubin Urine Negative (Negative); Blood Urine Negative (Negative); Color Urine Yellow (Yellow); Glucose Urine UA 1+ mg/dL (Negative); Ketones Urine Negative (Negative); Leukocyte Esterase Ur Negative LEU/UL (Negative); Mucus Urine Few /lpf; Nitrate Urine Negative (Negative); Protein Urine Negative (Negative); RBC Urine 0-2 /hpf (0-2); Specific Grav Ur 1.015 (1.001-1.035); Squamous Epithelial Cell Urine Rare /hpf (Few); WBC Urine 0-3 /hpf
[2019-09-29] MEDS: SODIUM CHLORIDE 0.9% IV 1,000 ML 999 ML IV CONT (18:37)
[2019-09-29] MEDS: KETOROLAC 30 MG/ML VIAL (*BKC) IV PUSH (18:38)
[2019-09-29 19:25] VITALS: BP 120/76; PULSE 91; RESP 16; O2SAT 95
--- NOTE | 2019-09-29 19:54 | ADMGEN ---
This patient, Stevo Solomon, was admitted to [facility] Surg Room 328-01. Patient/family oriented to hospital policies and general routines including ID bracelet, bed and alarms, visiting hours, pain management, procedures, bathroom and other care routines, personal items, smoking policy, room service/diet, and visiting hours. Valuables list has been completed. Information on how to activate the Rapid Response Team has been discussed. Patient/Family are encouraged to report perceived risks to care and to ask questions if they do not understand what they are told or what they should do.
[2019-09-29 20:24] VITALS: BP 123/65; PULSE 81; RESP 16; TEMP 36.7; O2SAT 100; BMI 32.3
[2019-09-29] MEDS: SODIUM CHLORIDE 0.9% IV 1,000 ML 125 ML IV CONT (20:50)
[2019-09-29 22:00] VITALS: BP 128/70; PULSE 87; RESP 16; TEMP 37.1; O2SAT 98
[2019-09-29] MEDS: NORTRIPTYLINE HCL 10 MG CAPSULE 30 MG PO (22:20)
[2019-09-29] MEDS: GABAPENTIN 300 MG CAPSULE 600 MG PO (22:23)
[2019-09-29 22:55] VITALS: PULSE 77; RESP 17; O2SAT 96
[2019-09-30] MEDS: SODIUM CHLORIDE 0.9% IV 1,000 ML 125 ML IV CONT (04:25)
[2019-09-30] MEDS: MORPHINE SULFATE 4 MG/ML INJ IV PUSH (04:26)
[2019-09-30 06:00] VITALS: BP 129/75; PULSE 82; RESP 16; TEMP 36.6; O2SAT 97
[2019-09-30] MEDS: GABAPENTIN 300 MG CAPSULE 600 MG PO ×3 (06:25→21:04)
[2019-09-30] MEDS: DULOXETINE 60 MG CAPSULE.DR PO (08:28)
--- NOTE | 2019-09-30 09:15 | PM.IMHP ---
H&P: HPI History of Present Illness Chief complaint: abd pain Narrative: Date of service of History and Physical: 09/30/2019 Stevo Solomon is a 63 year old male with a history of non-insulin dependent Diabetes Mellitus, occipital neuralgia, and obstructive sleep apnea, who presented to the emergency department via private vehicle on 09/29/2019 with abdominal pain. He describes abdominal pain as sharp and crampy, worse in the LLQ and spreading transversely across his abdomen to the RUQ. This radiates to the flanks and he describes a tight band-like sensation across his lower back. He describes this pain as a 6/10 currently and states pain can be somewhat alleviated by rocking back and forth in a seated position. He was previously hospitalized on 09/19/19 with similar pain and found to have pancreatitis. He was discharged on 09/22. He reports that since the initial episode on 09/19, the pain has not stopped. He believes it may have decreased, but reports persistent abdominal pain for 12 days. He denies vomiting. He reports he previously experienced nausea secondary to pain that was relieved with Zofran, but currently denies nausea. He has significantly decreased appetite and has not eaten anything in 2 days. He has regular bowel movements and has not had diarrhea. He takes stool softeners and laxatives and has had normal bowel movements since pain onset. He does report larger volumes of formed stool recently, with some being dark to almost black. He has noted blood on the toilet tissue, but also states he sees a GI doctor in [place] who is managing his hemorrhoids, and this is not a new issue. He is passing gas. He is urinating regularly and without difficulty. He reports difficulty sleeping due to pain. Review of Systems Review of Systems: Narrative: All systems reviewed & are unremarkable except as noted in HPI and below Constitutional: Constitutional: Reports no additional constitutional complaints Eyes: Eyes: Reports no additional eye complaints ENT: Reports Normal hearing present and Denies dysphagia Cardiovascular: Cardiovascular: Denies chest pain, Denies edema and Denies dyspnea Respiratory: Respiratory: Denies cough and Denies dyspnea Gastrointestinal: Gastrointestinal: Reports as per HPI Genitourinary: Genitourinary: Reports no additional male genitourinary complaints Musculoskeletal: Musculoskeletal: Reports back pain Integumentary/Breasts: Skin/Breast: Reports system reviewed and no additional complaints, except as docu Neurologic: Reports system reviewed and no additional complaints, except as documented Psychiatric: Psychiatric: Reports no additional psychiatric complaints Endocrine: Endocrine: Reports no additional endocrine complaints Hematologic/Lymphatic: Hematologic/Lymphatic: Reports no additional hematologic/lymphatic complaints [facility] Past Medical History Medical History (Updated 09/30/19 @ 17:46 by Pooja Oconnell PA-C) Acute pancreatitis Benign hypertension Gastro-esophageal reflux disease without esophagitis Mixed hyperlipidemia Obesity, unspecified Obstructive sleep apnea (adult) (pediatric) Occipital neuralgia Submandibular swelling Type 2 diabetes mellitus with diabetic polyneuropathy, without long-term current use of insulin Ventral hernia Surgical History Surgical History H/O ventral hernia repair Family History Family History (Updated 09/30/19 @ 09:39 by Pooja Oconnell PA-C) Father Diabetes mellitus Hypertension Family history of cardiovascular disease Family history of lung cancer Mother Family history of arthritis, Onset Age: 79 Social History Social History (Updated 09/30/19 @ 09:42 by Pooja Oconnell PA-C) Social History: Mr. Solomon lives at home with his . He has no pets. He sees Dr. Chun for primary care. 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 [facility] [place]
[2019-09-30] MEDS: LACTATED RINGERS 1,000 ML 125 ML IV CONT ×2 (11:28→22:24)
[2019-09-30] MEDS: PSYLLIUM POWDER PACKET 1 PACKET PO (11:28)
[2019-09-30] MEDS: HYDROMORPHONE HCL 1 MG/ML INJ IV PUSH ×2 (11:37→17:55)
[2019-09-30 14:00] VITALS: BP 126/70; PULSE 76; RESP 18; TEMP 36.6; O2SAT 95
[2019-09-30 18:01] LABS: Lactate Dehydrogenase 490 U/L (313-618)
[2019-09-30 18:08] LABS: Hemoglobin A1C 6.6 % (<5.7)
[2019-09-30] MEDS: NORTRIPTYLINE HCL 10 MG CAPSULE 30 MG PO (21:03)
[2019-09-30 22:00] VITALS: BP 142/70; PULSE 84; RESP 16; TEMP 36.9; O2SAT 97
[2019-09-30 22:40] VITALS: PULSE 75; RESP 18; O2SAT 97
[2019-09-30 23:20] LABS: Glucose Point of Care 95 (65-105)
[2019-10-01] MEDS: GABAPENTIN 300 MG CAPSULE 600 MG PO ×3 (05:56→20:50)
[2019-10-01] MEDS: LACTATED RINGERS 1,000 ML 125 ML IV CONT ×3 (05:56→20:52)
[2019-10-01 06:00] VITALS: BP 132/75; PULSE 87; RESP 16; TEMP 36.6; O2SAT 98
[2019-10-01 06:20] LABS: Basophils Percent Auto 0.2 % (0.2-1.2); Eosinophils Absolute Auto 0.1 K/mm3 (0-0.3); Hemoglobin 11.9 g/dL (14.0-18.0); Immature Granulocyte Absolute 0.09 K/mm3 (0.00-0.031); Immature Granulocyte Percent A 0.7 % (0-0.5); Lymphocytes Absolute Auto 1.56 K/mm3 (0.9-3.2); Lymphocytes Percent Auto 11.5 % (18.3-44.2); Mean Corpuscular HGB Conc 31.3 g/dl (32-36); Mean Corpuscular Hemoglobin 28.1 pg (26-34); Mean Corpuscular Volume 89.8 fl (80-100); Mean Platelet Volume 9.4 fl (7.4-10.4); Monocytes Absolute Auto 1.1 K/mm3 (0.1-0.6); Monocytes Percent Auto 7.8 % (2.6-8.5); Neutrophils Absolute Auto 10.6 K/mm3 (1.3-6.7); Neutrophils Percent Auto 78.8 % (45.5-73.1); Platelet Count Result 413 k/mm3 (150-375); Red Blood Count 4.23 M/mm3 (4.6-6.20); Red Cell Distribution Width 15.1 % (11.5-14.5); White Blood Count 13.5 K/mm3 (4.5-10.0)
[2019-10-01 06:42] LABS: LDL Cholesterol Direct 59 mg/dL
[2019-10-01 06:48] LABS: Alanine Aminotransferase 21 U/L (4-50); Albumin Level 3.2 g/dL (3.5-5.1); Alkaline Phosphatase 81 U/L (38-126); Aspartate Amino Transferase 33 U/L (17-59); Bilirubin,Total 0.4 mg/dL (0.2-1.3); Blood Urea Nitrogen 6 mg/dL (9-20); Calcium 8.5 mg/dL (8.4-10.2); Carbon Dioxide 31 mmol/L (22-30); Chloride 92 mmol/L (98-107); Cholesterol 104 mg/dL (0-200); Estimated CRCL calculation 134 ml/min; Estimated Glomerular Filt Rate > 60; Glucose 111 mg/dL (75-110); HDL Direct 19 mg/dL; Lipase 65 U/L (23-300); Potassium 4.1 mmol/L (3.4-5.0); Sodium 135 mmol/L (137-145); Triglycerides 102 mg/dL (<150)
[2019-10-01 06:59] LABS: CRP 11.6 mg/dL (<1.0)
[2019-10-01 07:34] LABS: Glucose Point of Care 97 (65-105)
[2019-10-01 08:43] LABS: Glucose Point of Care 106 (65-105)
[2019-10-01] MEDS: PSYLLIUM POWDER PACKET 1 PACKET PO (08:50)
[2019-10-01] MEDS: DULOXETINE 60 MG CAPSULE.DR PO (08:52)
--- NOTE | 2019-10-01 10:33 | PM.IMPN ---
Progress Note: A&P Assessment and Plan (1) Acute pancreatitis: Qualifiers: Acute pancreatitis complication: unspecified Pancreatitis type: unspecified pancreatitis type Qualified Code(s): K85.90 - Acute pancreatitis without necrosis or infection, unspecified Code(s): K85.90 - Acute pancreatitis without necrosis or infection, unspecified Status: Acute Assessment and Plan: CT abdomen on 09/29 shows progression of pancreatitis and surrounding inflammatory change with no evidence of necrosis, pseudocyst, or abscess. RUQ US from 09/19 shows boredline gallbladder wall thickening probably reactive given pancreatitis, no stones but possible sludge. Patient has no history of alcohol use. Triglycerides are normal. Lipase is 65. CRP elevated at 11.6. LDH is 490. Patient was previously hospitalized on 09/19 for acute idiopathic pancreatitis and pain has persisted. He is on a statin and omeprazole which could be a potential contributor to pancreatitis, although unlikely. He also previously took Invokamet but stopped this medication on his own after last hospitalization because he was concerned that may be contributing to pancreatitis. He is feeling better today, not requiring pain medication, and has an appetite. - Progress to clear liquid diet at lunch time and progress diet as tolerated - Continue IV Lactated Ringers at 125 ml/hour, will decrease as oral intake increases - 1 mg IV hydromorphone prn pain - Zofran prn nausea - Continue to monitor pain (2) Leukocytosis: Qualifiers: Leukocytosis type: unspecified Qualified Code(s): D72.829 - Elevated white blood cell count, unspecified Code(s): D72.829 - Elevated white blood cell count, unspecified Status: Acute Assessment and Plan: WBC elevated at 13.5 Likely related to pancreatitis. There is no sign of active infection, no fever, and vitals are stable. - Continue to monitor CBC with diff. (3) Type 2 diabetes mellitus with diabetic polyneuropathy, without long-term current use of insulin: Code(s): E11.42 - Type 2 diabetes mellitus with diabetic polyneuropathy Status: Chronic Assessment and Plan: Patient takes metformin for control and is insulin naive. Previously took Invokamet but has taken himself off this medication as he was concerned it may be contributing to pancreatitis. He reports his last A1c was 6.5% but unsure when this was taken. Blood sugar stable today at 111. Current A1c is 6.6%. - Hold metformin as patient recently had contrast CT and blood sugars are stable - Continue accu-checks, low dose sliding scale insulin, and hypoglycemia protocol (4) Occipital neuralgia: Qualifiers: Laterality: unspecified laterality Qualified Code(s): M54.81 - Occipital neuralgia Code(s): M54.81 - Occipital neuralgia Status: Chronic Assessment and Plan: Patient has occipital neuralgia due to a work related injury. He sees a pain management doctor for this problem and states it is well controlled. - Continue home pain management regimen of gabapentin, nortriptyline, duloxetine, and oxycodone. (5) Benign hypertension: Code(s): I10 - Essential (primary) hypertension Status: Chronic Assessment and Plan: Blood pressure evaluated today and stable at 132/75. Patient does not take antihypertensives. - Continue to monitor blood pressure (6) Obstructive sleep apnea (adult) (pediatric): Code(s): G47.33 - Obstructive sleep apnea (adult) (pediatric) Status: Chronic Assessment and Plan: Patient reports good compliance with CPAP machine. He is not symptomatic. - Continue CPAP machine (7) Mixed hyperlipidemia: Code(s): E78.2 - Mixed hyperlipidemia Status: Acute Assessment and Plan: Patient takes simvastatin. LFTs are WNL. Lipid panel performed and all are within normal limits. - Hold simvastatin (8) Gastro-esophageal
[2019-10-01 12:26] LABS: Glucose Point of Care 91 (65-105)
[2019-10-01 14:00] VITALS: BP 143/81; PULSE 94; RESP 14; TEMP 37.1; O2SAT 94
[2019-10-01] MEDS: IBUPROFEN 400 MG TABLET PO (16:30)
[2019-10-01 17:22] LABS: Glucose Point of Care 119 (65-105)
[2019-10-01] MEDS: PANTOPRAZOLE 40 MG TABLET PO (20:51)
[2019-10-01 22:00] VITALS: BP 132/76; PULSE 83; RESP 18; TEMP 37; O2SAT 97
[2019-10-01 22:04] LABS: Glucose Point of Care 105 (65-105)
[2019-10-01] MEDS: NORTRIPTYLINE HCL 10 MG CAPSULE 30 MG PO (22:25)
[2019-10-02] MEDS: LIDOCAINE 5% PATCH 1 PATCH TRANSDERM (04:42)
[2019-10-02] MEDS: LACTATED RINGERS 1,000 ML 125 ML IV CONT (04:43)
[2019-10-02] MEDS: ACETAMINOPHEN 325 MG TABLET 650 MG PO ×2 (04:47→14:14)
[2019-10-02 06:00] VITALS: BP 132/74; PULSE 68; RESP 16; TEMP 36.5; O2SAT 95
[2019-10-02 06:23] LABS: Hematocrit 35.9 % (42.0-52.0); Hemoglobin 11.8 g/dL (14.0-18.0); Mean Corpuscular HGB Conc 32.9 g/dl (32-36); Mean Corpuscular Hemoglobin 28.3 pg (26-34); Mean Corpuscular Volume 86.1 fl (80-100); Mean Platelet Volume 8.8 fl (7.4-10.4); Platelet Count Result 466 k/mm3 (150-375); Red Blood Count 4.17 M/mm3 (4.6-6.20); Red Cell Distribution Width 14.8 % (11.5-14.5); White Blood Count 12.3 K/mm3 (4.5-10.0)
[2019-10-02 06:43] LABS: Blood Urea Nitrogen 7 mg/dL (9-20); Calcium 8.4 mg/dL (8.4-10.2); Carbon Dioxide 29 mmol/L (22-30); Chloride 94 mmol/L (98-107); Estimated CRCL calculation 134 ml/min; Estimated Glomerular Filt Rate > 60; Glucose 133 mg/dL (75-110); Potassium 3.8 mmol/L (3.4-5.0); Sodium 136 mmol/L (137-145)
[2019-10-02] MEDS: GABAPENTIN 300 MG CAPSULE 600 MG PO ×2 (08:08→16:01)
[2019-10-02 08:24] LABS: Glucose Point of Care 123 (65-105)
[2019-10-02] MEDS: DULOXETINE 60 MG CAPSULE.DR PO (10:15)
[2019-10-02] MEDS: PSYLLIUM POWDER PACKET 1 PACKET PO (10:15)
[2019-10-02] MEDS: PANTOPRAZOLE 40 MG TABLET PO (10:15)
[2019-10-02 13:12] LABS: Glucose Point of Care 94 (65-105)
--- NOTE | 2019-10-02 13:16 | PM.DS ---
DS: Diagnosis Admitting Diagnosis Admitting Diagnosis: Acute pancreatitis without necrosis or infection, unspecified Discharge Diagnosis (1) Acute pancreatitis: Qualifiers: Acute pancreatitis complication: unspecified Pancreatitis type: unspecified pancreatitis type Qualified Code(s): K85.90 - Acute pancreatitis without necrosis or infection, unspecified Code(s): K85.90 - Acute pancreatitis without necrosis or infection, unspecified Status: Acute Assessment and Plan: CT abdomen on 09/29 shows progression of pancreatitis and surrounding inflammatory change with no evidence of necrosis, pseudocyst, or abscess. RUQ US from 09/19 shows boredline gallbladder wall thickening probably reactive given pancreatitis, no stones but possible sludge. Patient has no history of alcohol use. Triglycerides are normal. Lipase is 65. CRP elevated at 11.6. LDH is 490. (2) Leukocytosis: Qualifiers: Leukocytosis type: unspecified Qualified Code(s): D72.829 - Elevated white blood cell count, unspecified Code(s): D72.829 - Elevated white blood cell count, unspecified Status: Acute Assessment and Plan: (3) Type 2 diabetes mellitus with diabetic polyneuropathy, without long-term current use of insulin: Code(s): E11.42 - Type 2 diabetes mellitus with diabetic polyneuropathy Status: Chronic Assessment and Plan: (4) Occipital neuralgia: Qualifiers: Laterality: unspecified laterality Qualified Code(s): M54.81 - Occipital neuralgia Code(s): M54.81 - Occipital neuralgia Status: Chronic (5) Benign hypertension: Code(s): I10 - Essential (primary) hypertension Status: Chronic Assessment and Plan: Blood pressure at discharge stable at 132/74. (6) Obstructive sleep apnea (adult) (pediatric): Code(s): G47.33 - Obstructive sleep apnea (adult) (pediatric) Status: Chronic (7) Mixed hyperlipidemia: Code(s): E78.2 - Mixed hyperlipidemia Status: Acute (8) Gastro-esophageal reflux disease without esophagitis: Code(s): K21.9 - Gastro-esophageal reflux disease without esophagitis Status: Chronic DS: Summary Hospital Course Reason for hospitalization: Abdominal pain Hospital Course: Date of discharge: 10/02/19 Date of admission: 09/29/19 Stevo Solomon is a 63-year-old male with a history of [id number] diabetes mellitus, occipital neuralgia and obstructive sleep apnea, who presented to the emergency department on 09/29/2019 with abdominal pain. He was previously hospitalized on 09/19/2019 with similar pain and found to have idiopathic pancreatitis. He was discharged 09/22. He reported his pain did not improve, and experienced 12 days of persistent abdominal pain without vomiting or diarrhea. He was admitted for observation on 09/29/2019. His CT scan showed progression of pancreatitis and inflammatory changes without evidence of infection. He remained NPO with IV fluids and his pain was controlled with hydromorphone. On day 2 of hospitalization, his pain was much improved, he was no longer requiring pain medication, and his appetite had returned. He was started on clear liquids, then progressed to full liquids and eventually low-fat diet. His lipase remained within normal limits. At time of discharge lipase was 65. Triglycerides within normal limits at 102. He did have some leukocytosis and thrombocytosis, likely acute phase reactants from pancreatitis, which remained stable with no signs of infection. We discussed advancing his diet slowly as tolerated and plenty of fluids. Although he has no history of alcohol use, I reiterated the importance of avoiding alcohol. His blood sugars remained well controlled while hospitalized. His metformin was held during hospitalization as he underwent a contrast CT scan. His A1c was 6.6. He was initiated on a low-dose sliding scale insulin with Accu-
--- NOTE | 2019-10-02 21:32 | PC.NURSE ---
1612 Discharged home with spouse, alert, awake, oriented times four, no complaints. Left with discharge paperwork and personal affects. PCT escorted out to [facility] in wheelchair.
== END 2019-10-02 17:36 | disposition home or self-care (01) | DRG 440 ==
LOC: ANHED 18:37 → ANH3MEDSUR 19:52
PROVIDERS: Emergency Medicine; Physician Assistant; Admitting Provider Internal Medicine; Emergency Provider Emergency Medicine; PCP Family Medicine; Visit Provider Internal Medicine
DX: K85.90 Acute pancreatitis without necrosis or infection, unspecified (principal); D72.829 Elevated white blood cell count, unspecified; E11.42 Type 2 diabetes mellitus with diabetic polyneuropathy; M54.81 Occipital neuralgia; I10 Essential (primary) hypertension; G47.33 Obstructive sleep apnea (adult) (pediatric); E78.2 Mixed hyperlipidemia; K21.9 Gastro-esophageal reflux disease without esophagitis; E66.9 Obesity, unspecified; Z68.32 Body mass index [BMI] 32.0-32.9, adult
CPT/HCPCS: 36415; 74177; 80048; 80053; 80061; 81001; 83036; 83615; 83690; 85025; 85027; 86140; 96361; 96374; 96375; 99285; A9270; G0378; J1170; J1885; J2270; J3010; J7030; J7120; Q9967

== ENCOUNTER → 2019-10-09 12:12 | Outpatient (CLI) | payer MEDICARE, SELFPAY ==
--- NOTE | ~2019-10-09 | XR_ITS ---
XR lumbar spine 6V w bending 10/09/2019 12:33 Indication: Low back pain Procedure: 7 views lumbar spine Comparison: No prior studies for comparison. Findings: There is disc narrowing at all lumbar levels. There is dextroscoliosis centered at L2. No f racture, subluxation or dislocation. No evidence for spondylolisthesis. There is moderate facet hyper trophy of the mid and lower lumbar spine. Impression: 1: Moderate-severe lumbar spondylosis with dextroscoliosis Reviewed, dictated and finalized at location B. LOPER PROGRAMMER ANALYST Impression: 1: Moderate-severe lumbar spondylosis with dextroscoliosis
== END ==
PROVIDERS: PCP Nurse Practitioner Family; Visit Provider Nurse Practitioner Family
DX: M47.896 Other spondylosis, lumbar region (principal)
CPT/HCPCS: 72114

== ENCOUNTER 2020-04-02 09:30 | Outpatient (RCR) | payer MEDICARE, SELFPAY ==
[2020-01-04 08:03] VITALS: BMI 30.2
[2020-04-02 09:27] VITALS: BMI 30.9
[2020-04-02 09:29] VITALS: BMI 30.9
== END 2020-04-03 23:59 | disposition home or self-care (01) ==
LOC: ANHDMC 09:30
PROVIDERS: PCP Family Medicine; Visit Provider Physician Assistant
DX: E11.42 Type 2 diabetes mellitus with diabetic polyneuropathy (principal); Z71.3 Dietary counseling and surveillance; Z71.89 Other specified counseling
CPT/HCPCS: 97802; 97803; G0108

== ENCOUNTER 2020-04-11 09:39 | Outpatient (CLI) | payer MEDICARE, SELFPAY ==
--- NOTE | 2020-04-11 | EST_ITS ---
Patient Info Name: Stevo Solomon Age: 64 years : 1955 Gender: Male Ht: 70 in Wt: 215 lbs BSA: 2.22 m2 HR: 75 bpm BP: 107 / 62 mmHg Heart Rhythm: Sinus Rhythm Exam Date: 04/11/2020 11:35 AM Exam Location: [facility] Patient Status: Outpatient Admit Date: 04/11/2020 Staff Ordering Physician: Melquiades Ríos PA-C Fire Behavior Analyst: Sima Fregoso RDCS Attending Provider: ALVARO MCGRATH DO Referring Physician: [place]oacano LESLIE; Exercise Technologist: Merissa Culver RDCS Exercise Physician: Alvaro Mcgrath DO Exam Type: CA stress echo Study Info Indications R07.89 - Other chest pain Treadmill exercise stress echocardiogram is performed. Summary 1. 1. Negative Tahir exercise stress test for ischemic ST changes by ECG criteria. 2. 2. Good functional capacity, achieving 10 METs of workload. 3. 3. Appropriate HR response to exercise. 4. 4. Appropriate HR recovery at 1 minute post exercise. 5. 5. Negative stress echocardiogram for ischemia by wall motion analysis. 6. 6. Patient informed of the above results. Stress Echo Findings Left Ventricle Appropriate increase in LV endocardial thickening with systole. Appropriate augmentation of contractility with systole. No wall motion abnormality. Left Ventricle Normal LV systolic function, no wall motion abnormality. Protocol: Tahir Stress ECG Details Stage: REST Duration (min): 8 min : 19 sec Speed (mph): 0.0 Grade (%): 0 HR (bpm): 76 SBP (mmHg): 107 DBP (mmHg): 62 METS: --- Stage: REST Duration (min): 29 min : 4 sec Speed (mph): 0.0 Grade (%): 0 HR (bpm): 73 SBP (mmHg): 107 DBP (mmHg): 62 METS: --- Stage: STAGE 1 Duration (min): 1 min : 0 sec Speed (mph): 1.7 Grade (%): 10 HR (bpm): 105 SBP (mmHg): 107 DBP (mmHg): 62 METS: --- Stage: STAGE 1 Duration (min): 2 min : 0 sec Speed (mph): 1.7 Grade (%): 10 HR (bpm): 121 SBP (mmHg): 107 DBP (mmHg): 62 METS: --- Stage: STAGE 1 Duration (min): 3 min : 0 sec Speed (mph): 1.7 Grade (%): 10 HR (bpm): 119 SBP (mmHg): 142 DBP (mmHg): 52 METS: --- Stage: STAGE 2 Duration (min): 1 min : 0 sec Speed (mph): 2.5 Grade (%): 12 HR (bpm): 125 SBP (mmHg): 142 DBP (mmHg): 52 METS: --- Stage: STAGE 2 Duration (min): 2 min : 0 sec Speed (mph): 2.5 Grade (%): 12 HR (bpm): 127 SBP (mmHg): 138 DBP (mmHg): 51 METS: --- Stage: STAGE 2 Duration (min): 3 min : 0 sec Speed (mph): 2.5 Grade (%): 12 HR (bpm): 135 SBP (mmHg): 138 DBP (mmHg): 51 METS: --- Stage: STAGE 3 Duration (min): 1 min : 0 sec Speed (mph): 3.4 Grade (%): 14 HR (bpm): 145 SBP (mmHg): 134 DBP (mmHg): 52 METS: --- Stage: STAGE 3 Duration (min): 2 min : 0 sec Speed (mph): 3.4 Grade (%): 14 HR (bpm): 153 SBP (mmHg): 134 DBP (mmHg): 52 METS: --- Stage: STAGE 3 Duration
== END 2020-04-11 09:40 | disposition home or self-care (01) ==
LOC: ANHCARD 09:41
PROVIDERS: PCP Family Medicine; Visit Provider Physician Assistant
DX: R07.9 Chest pain, unspecified (principal)
CPT/HCPCS: 93351

== ENCOUNTER 2020-04-17 23:58 | Emergency (ER) | payer MEDICARE, SELFPAY ==
--- NOTE | ~2020-04-17 | XR_ITS ---
EXAMINATION: XR foot LT min 3V DATE: 04/18/2020 00:27 INDICATION: Losing and nodule at the left foot. TECHNIQUE: Dorsoplantar, two oblique and lateral views of the left foot were obtained. COMPARISON: None. FINDINGS: Alignment is normal. No fracture. Minimal to mild polyarticular osteoarthritis at several of the tars al metatarsal, metatarsophalangeal and interphalangeal joints. Cluster of 3 heterotopic ossicles desirae g the plantar aponeurosis. Small plantar calcaneal spur. Tiny enthesopathic ossicle at the distal Ach illes tendon. IMPRESSION: 1. No acute osseous abnormality. 2. 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 3. Minimal to mild polyarticular osteoarthritis in the mid and forefoot. Reviewed, dictated and finalized at location A. IMPRESSION: 1. No acute osseous abnormality. 2. 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 3. Minimal to mild polyarticular osteoarthritis in the mid and forefoot.
[2020-04-18] VITALS: BP 145/82; PULSE 87; RESP 18; TEMP 36.6; O2SAT 97
--- NOTE | 2020-04-18 02:18 | ED.LOWEXIN ---
HPI - Extremity Injury (Lower) General Chief Complaint: Extremity Injury, Lower Stated Complaint: left foot injury Time Seen by Provider: 04/18/20 02:06 History of Present Illness HPI Narrative: Awoke this morning with swelling to the dorsum of the left foot and bruising around the toes, which increased throughout the day. This is associated with mild pain in the foot. He does not recall any injury. He has diabetic neuropathy, but does still have sensation in his feet. No wound. Related Data Home Medications Medication Instructions Recorded Confirmed azelastine-fluticasone 137 mcg-50 1 spray NASAL BID PRN 07/18/19 03/12/20 mcg/spray nasal spray nortriptyline 10 mg capsule 30 mg PO HS 07/18/19 03/12/20 aspirin [Adult Low Dose Aspirin] 81 mg PO DAILY 09/19/19 03/12/20 oxycodone [OxyContin] 30 mg PO Q12H 09/19/19 03/12/20 metformin 500 mg tablet,extended 500 mg PO BID 03/12/20 03/12/20 release 24 hr Allergies Allergy/AdvReac Type Severity Reaction Status Date / Time canagliflozin [From Invokana] Allergy Intermediate pancreatiti Verified 04/18/20 01:45 s pollen extracts Allergy Intermediate Itchy eyes Verified 04/18/20 01:45 Review of Systems Review of Systems: All systems reviewed & are unremarkable except as noted in HPI and below Constitutional: Constitutional: Denies fever(s) Cardiovascular: Cardiovascular: Denies chest pain Respiratory: Respiratory: Denies dyspnea Integumentary/Breasts: Skin/Breast: Denies skin ulcer Neurologic: Denies weakness [facility] Past Medical History Medical History Acute pancreatitis Benign hypertension Gastro-esophageal reflux disease without esophagitis Mixed hyperlipidemia Obesity, unspecified Obstructive sleep apnea (adult) (pediatric) Occipital neuralgia Submandibular swelling Type 2 diabetes mellitus with diabetic polyneuropathy, without long-term current use of insulin Ventral hernia Surgical History Surgical History H/O ventral hernia repair Family History Family History Father Diabetes mellitus Hypertension Family history of cardiovascular disease Family history of lung cancer Mother Family history of arthritis, Onset Age: 79 Social History Social History Social History: Mr. Solomon lives at home with his . He has no pets. He sees Dr. Chun for primary care. 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 Smoking status: Never smoker Second hand tobacco smoke exposure: Yes Alcohol intake: never Substance use: never Gender identity (if verbalized by the patient): Male Spiritual care concerns: No Agree to blood products: Yes Exam Const: General: no acute distress and alert Orientation/consciousness: patient oriented x3 HENMT: Head: normal to inspection Resp: Effort & Inspection: normal respiratory effort Auscultation: clear to auscultation bilaterally Cardio: Rate: regular rate Rhythm: regular rhythm Other: 2+ DP and PT pulses on lefts Skin: Other: Bruising around the bases of toes 2-5 on the left Neuro: General: patient oriented x3, moves all extremities and no focal motor deficits Speech: normal speech Psych: Appearance: grossly normal Mental Status: mental status grossly normal Affect: normal affect Course Vital Signs Vital signs: Vital Signs Temperature 36.6 C 04/18/20 00:00 Pulse Rate 87 04/18/20 00:00 Respiratory Rate 18 04/18/20 00:00 Blood Pressure 145/82 H 04/18/20 00:00 Pulse Oximetry 97 04/18/20 00:00 Temperature 36.6 C 04/18/20 00:00 Pulse Rate 84 04/18/20 02:40 Respiratory Rate 16 04/18/20 02:40 Blood Pressure 138/79 04/18/20 02:40 Pulse Oximetry 97 04/18/20 02:40 MDM - Extremity Injury (Low
[2020-04-18 02:40] VITALS: BP 138/79; PULSE 84; RESP 16; O2SAT 97
== END 2020-04-18 02:40 | disposition home or self-care (01) ==
PROVIDERS: Emergency Provider Emergency Medicine; PCP Family Medicine
DX: S90.32XA Contusion of left foot, initial encounter (principal); E78.2 Mixed hyperlipidemia; I10 Essential (primary) hypertension; K21.9 Gastro-esophageal reflux disease without esophagitis; E66.9 Obesity, unspecified; Z68.23 Body mass index [BMI] 23.0-23.9, adult; G47.33 Obstructive sleep apnea (adult) (pediatric); E11.42 Type 2 diabetes mellitus with diabetic polyneuropathy; M19.072 Primary osteoarthritis, left ankle and foot; Z79.84 Long term (current) use of oral hypoglycemic drugs; Z79.82 Long term (current) use of aspirin; X58.XXXA Exposure to other specified factors, initial encounter
CPT/HCPCS: 73630; 99283

== ENCOUNTER 2020-04-25 09:14 | Outpatient (RCR) | payer MEDICARE, SELFPAY | END 2020-07-18 12:48 | disposition home or self-care (01) | LOC: ANHDMC 09:14 | PROVIDERS: PCP Family Medicine; Visit Provider Physician Assistant | DX: E11.42 Type 2 diabetes mellitus with diabetic polyneuropathy (principal); Z71.89 Other specified counseling | CPT/HCPCS: G0108 ==

== ENCOUNTER → 2021-11-03 08:19 | Outpatient (CLI) | payer MEDICARE, SELFPAY ==
--- NOTE | ~2021-11-03 | CT_ITS ---
EXAMINATION: CT abdomen pelvis w con EXAM DATE: 11/03/2021 08:45 INDICATION: R10.9 - Unspecified abdominal pain. TECHNIQUE: Spiral CT of the abdomen and pelvis was performed following intravenous injection of 100 m L Omnipaque 350. Axial, coronal and sagittal images of the abdomen and pelvis were reviewed. The do se-length product (DLP) for this examination was 1100.37 mGy-cm. The exposure was tailored according to patient size (auto mA exposure control), and iterative reconstruction (ASIR) was used as addition al dose reduction technique. Comparison is made to prior examination from 09/29/2019. FINDINGS: Compared to previous examination, the peripancreatic inflammation has resolved. There is h epatic steatosis without suspicious focal lesion identified. Spleen, adrenal glands, pancreas are unr emarkable. Some small layering gallstones in the gallbladder neck. No biliary dilation. Portal and splenic veins are patent. Kidneys enhance symmetrically. There is no hydronephrosis. The prostate is unremarkable. The bladder is unremarkable. There is no retroperitoneal or pelvic lymphadenopath y. There are no findings to suggest appendicitis. The stomach and small bowel are unremarkable. There is expected amount of colonic stool. No free intraperitoneal gas. The heart is normal in size. T here are no pericardial or pleural effusions. The lung bases are unremarkable. IMPRESSION: 1. No acute intra-abdominal findings. 2. Cholelithiasis. Reviewed, dictated and finalized at location B.
[2021-11-03 08:35] LABS: Estimated Glomerular Filt Rate > 60
== END ==
PROVIDERS: PCP Internal Medicine Gastroenterology; Visit Provider Physician Assistant
DX: R10.9 Unspecified abdominal pain (principal); K80.20 Calculus of gallbladder without cholecystitis without obstruction
CPT/HCPCS: 74177; Q9967

== ENCOUNTER → 2022-05-08 09:19 | Outpatient (CLI) | payer MEDICARE, SELFPAY ==
--- NOTE | ~2022-05-08 | XR_ITS ---
XR chest 2V 05/08/2022 09:54 Indication: Chronic cough Procedure: 2 view chest Comparison: Comparison to multiple prior studies sequentially, with oldest reviewed study dated 09/2007. Findings: There is right lower lobe atelectasis. Heart size normal. No focal, edema, pleural effusion or pneumothorax. No acute osseous abnormality. Impression: 1: Right lower lobe atelectasis. Reviewed, dictated and finalized at location B. Impression: 1: Right lower lobe atelectasis.
== END ==
PROVIDERS: PCP Emergency Medicine; Visit Provider Emergency Medicine
DX: R05.3 Chronic cough (principal); R91.8 Other nonspecific abnormal finding of lung field
CPT/HCPCS: 71046

== ENCOUNTER 2022-10-09 10:16 | Emergency (ER) | payer MEDICARE, SELFPAY ==
--- NOTE | ~2022-10-09 | XR_ITS ---
XR chest 2V 10/09/2022 11:00 Indication: Shortness of breath with cough Procedure: 2 view chest Comparison: 05/08/2022 Findings: There is left lower lobe atelectasis. Heart size normal. Right lung clear. No pleural effus ion or pneumothorax. No acute osseous abnormality. Impression: 1: Left lower lobe atelectasis. Reviewed, dictated and finalized at location B. TIENT SERVICES DIRECTOR Impression: 1: Left lower lobe atelectasis.
[2022-10-09 10:29] VITALS: BP 133/75; PULSE 88; RESP 20; TEMP 36.1; O2SAT 97
--- NOTE | 2022-10-09 10:42 | ED.URI ---
HPI - URI/Sore Throat General Chief Complaint: Upper Respiratory Infection Stated Complaint: cough,congestion Source: patient Mode of arrival: ambulatory Limitations: no limitations History of Present Illness HPI Narrative: 66-year-old male presented for complaint of cough worsening over the last 3 days. States he has had a 'dry hacky cough' for about 2 weeks but feels it is now in his chest. He endorses a constant pressure in his mid chest, mild pain with cough, and the cough is at times productive. Endorses fatigue and dizziness with standing, and states walking wears him out. He used an old inhaler from 2019 yesterday and this morning, stating it did make it easier for him to cough. He currently denies chest pain, palpitations, nausea, vomiting, diarrhea, fevers or chills. He has grand children with strep throat. Patient has a history of diabetes, REYMUNDO, pancreatitis, and follows with pain management for occipital neuralgia. Related Data Home Medications Medication Instructions Recorded Confirmed aspirin 81 mg tablet,delayed 81 mg PO DAILY 09/19/19 10/09/22 release (Adult Low Dose Aspirin) oxycodone myristate 27 mg capsule 27 mg PO Q12H 09/05/20 10/09/22 sprinkle extended release 12hr(DON'T CRUSH) (Xtampza ER) naproxen sodium 220 mg capsule 440 mg PO BID PRN Pain 01/13/21 10/09/22 (Aleve) Allergies Allergy/AdvReac Type Severity Reaction Status Date / Time canagliflozin [From Invokana] Allergy Intermediate pancreatiti Verified 10/09/22 10:34 s pollen extracts Allergy Intermediate Itchy eyes Verified 10/09/22 10:34 Review of Systems Review of Systems: CONSTITUTIONAL: Denies body aches, fever, chills, or sweats. EYES: Denies visual changes, redness, or discharge. ENT: Denies rhinorrhea, congestion, sore throat, or otalgia. CARDIOVASCULAR: Denies palpitations, or edema. RESPIRATORY: Reports cough, sob, denies wheezing. GASTROINTESTINAL: Denies abdominal pain, nausea, vomiting, or diarrhea. GENITOURINARY: Denies dysuria or hematuria. SKIN: Denies rash, itching, or wounds. MUSCULOSKELETAL: Denies back pain, joint pain, or myalgia. NEUROLOGIC: Denies headache, numbness, tingling, or weakness. All systems reviewed & are unremarkable except as noted in HPI and below PMFSH Past Medical History Medical History Acute pancreatitis Benign hypertension Gastro-esophageal reflux disease without esophagitis Mixed hyperlipidemia Obesity, unspecified Obstructive sleep apnea (adult) (pediatric) Occipital neuralgia Submandibular swelling Type 2 diabetes mellitus with diabetic polyneuropathy, without long-term current use of insulin Ventral hernia Surgical History Surgical History H/O ventral hernia repair Family History Family History Father Diabetes mellitus Hypertension Family history of cardiovascular disease Family history of lung cancer Mother Family history of arthritis, Onset Age: 79 Social History Social History Social History: Mr. Solomon lives at home with his . He has no pets. He sees Dr. Chun for primary care. 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 Smoking status: Never smoker Second hand tobacco smoke exposure: Yes Alcohol intake: never Substance use: never Lack of Transportation: No Lack of Food: Never True Current Housing: I Have Housing Concerned About Future Housing: No Difficulty Paying Gas/Electric Bills: No Difficulty Paying for Meds: No Currently Unemployed: No Education: Trade/Vocational Certificate Difficulty w/ Childcare or Family Care: No Living arrangements: with family Gender identity (if verbalized by the patient): Male Spiritual care concerns: No Agree to blood pro
--- NOTE | 2022-10-09 15:43 | ECG_ITS ---
Measurements Intervals [place] Rate: 84 P: 29 TX: 150 QRS: 6 QRSD: 110 T: 47 QT: 375 QTc: 445 Interpretive Statements SINUS RHYTHM NORMAL ECG NO PREVIOUS ECG AVAILABLE FOR COMPARISON Electronically Signed On 10-09-2022 16:48:50 PLATE STRAIGHTENER by Alvaro Felton D.O.
== END 2022-10-09 11:38 | disposition home or self-care (01) ==
PROVIDERS: Emergency Provider Nurse Practitioner Family; PCP Emergency Medicine
DX: J98.11 Atelectasis (principal); I10 Essential (primary) hypertension; K21.9 Gastro-esophageal reflux disease without esophagitis; E78.2 Mixed hyperlipidemia; E11.42 Type 2 diabetes mellitus with diabetic polyneuropathy; E66.9 Obesity, unspecified; Z68.34 Body mass index [BMI] 34.0-34.9, adult; Z79.82 Long term (current) use of aspirin
CPT/HCPCS: 71046; 87081; 87880; 93005; 99213; G0463

== ENCOUNTER 2022-11-23 11:47 | Outpatient (CLI) | payer MEDICARE, SELFPAY ==
[2022-11-23 20:35] LABS: Alanine Aminotransferase 69 U/L (6-50); Albumin Level 4.8 g/dL (3.5-5.1); Alkaline Phosphatase 73 U/L (38-126); Anion Gap 9 mmol/L (8-16); Aspartate Amino Transferase 69 U/L (17-59); Bilirubin,Total 0.7 mg/dL (0.2-1.3); Blood Urea Nitrogen 11 mg/dL (9-20); Calcium 9.3 mg/dL (8.4-10.2); Carbon Dioxide 29 mmol/L (22-30); Chloride 102 mmol/L (98-107); Estimated Glomerular Filt Rate > 60; Glucose 144 mg/dL (65-110); Potassium 4.1 mmol/L (3.4-5.0); Sodium 140 mmol/L (137-145)
[2022-11-23 21:11] LABS: Hemoglobin A1C 6.6 % (<5.7)
== END 2022-11-23 11:48 | disposition home or self-care (01) ==
LOC: ANHGOSHLAB 11:49
PROVIDERS: PCP Emergency Medicine; Visit Provider Emergency Medicine
DX: E11.42 Type 2 diabetes mellitus with diabetic polyneuropathy (principal)
CPT/HCPCS: 36415; 80053; 83036

== ENCOUNTER 2023-02-05 14:49 | Emergency (ER) | payer MEDICARE, SELFPAY ==
[2023-02-05 14:56] VITALS: BP 128/68; PULSE 82; RESP 14; TEMP 36.1; O2SAT 97
--- NOTE | 2023-02-05 15:09 | ED.DENTAL ---
HPI - Dental/Oral General Chief complaint: Dental/Oral Stated complaint: Upper Lt Mouth Pain Time Seen by Provider: 02/05/23 15:10 Source: patient, RN notes reviewed and old records reviewed Mode of arrival: ambulatory Limitations: no limitations History of Present Illness HPI Narrative: 67 year old male who presents to express care with complaints of pain to the left upper tooth since last night after eating ice cream. Patient reports initially he wasn't sure which tooth specifically it was the whole area of his left upper jaw teeth was sore but this morning he reports he has noted pain is localized to #14 tooth. He states that this tooth has filling, denies any facial swelling or any left sided facial pain. Patient has history of occipital nerve neuralgia and sees pain management and is on daily pain medication for management of this condition. Patient reports that he has appointment with dentist on Wednesday 3 days. MD Complaint: tooth pain Location: Tooth # (14) Onset (ago): day(s) (started last night) Severity scale (1-10): 5 Exacerbating factors: chewing Related Data Home Medications Medication Instructions Recorded Confirmed aspirin 81 mg tablet,delayed 81 mg PO DAILY 09/19/19 02/05/23 release (Adult Low Dose Aspirin) oxycodone myristate 27 mg capsule 27 mg PO Q12H 09/05/20 02/05/23 sprinkle extended release 12hr(DON'T CRUSH) (Xtampza ER) naproxen sodium 220 mg capsule 440 mg PO BID PRN Pain 01/13/21 02/05/23 (Aleve) Allergies Allergy/AdvReac Type Severity Reaction Status Date / Time pollen extracts Allergy Intermediate Itchy eyes Verified 11/23/22 11:18 Review of Systems Review of Systems: CONSTITUTIONAL: Denies fever, chills, or sweats. ENT: Denies rhinorrhea, congestion, sore throat, or otalgia. Reports dental pain #14 tooth CARDIOVASCULAR: Denies chest pain, palpitations, or edema. RESPIRATORY: Denies cough or dyspnea. SKIN: Denies rash or itching. MUSCULOSKELETAL: Denies myalgia. NEUROLOGIC: Denies headache, facial swelling left side or facial pain left side. All systems reviewed & are unremarkable except as noted in HPI and below PMFSH Past Medical History Medical History Acute pancreatitis Benign hypertension Gastro-esophageal reflux disease without esophagitis Mixed hyperlipidemia Obesity, unspecified Obstructive sleep apnea (adult) (pediatric) Occipital neuralgia Submandibular swelling Type 2 diabetes mellitus with diabetic polyneuropathy, without long-term current use of insulin Ventral hernia Surgical History Surgical History H/O ventral hernia repair Family History Family History Father Diabetes mellitus Hypertension Family history of cardiovascular disease Family history of lung cancer Mother Family history of arthritis, Onset Age: 79 Social History Social History Social History: Mr. Solomon lives at home with his . He has no pets. He sees Dr. Chun for primary care. 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 Smoking status: Never smoker Second hand tobacco smoke exposure: Yes Alcohol intake: never Substance use: never Lack of Transportation: No Lack of Food: Never True Current Housing: I Have Housing Concerned About Future Housing: No Difficulty Paying Gas/Electric Bills: No Difficulty Paying for Meds: No Currently Unemployed: No Education: Trade/Vocational Certificate Difficulty w/ Childcare or Family Care: No Living arrangements: with family Gender identity (if verbalized by the patient): Male Spiritual care concerns: No Agree to blood products: Yes Comments At time of signature, agree with nursing past medical, surgical, social and family history. There is no rele
== END 2023-02-05 15:30 | disposition home or self-care (01) ==
PROVIDERS: Emergency Provider Registered Nurse; PCP Emergency Medicine
DX: K02.9 Dental caries, unspecified (principal); I10 Essential (primary) hypertension; E11.9 Type 2 diabetes mellitus without complications; E78.2 Mixed hyperlipidemia; Z79.1 Long term (current) use of non-steroidal anti-inflammatories (NSAID); Z79.82 Long term (current) use of aspirin
CPT/HCPCS: 99213; G0463

== ENCOUNTER → 2023-06-14 09:30 | Outpatient (CLI) | payer MEDICARE, SELFPAY ==
--- NOTE | ~2023-06-14 | XR_ITS ---
Left Knee Technique: AP, lateral, and sunrise views were obtained. Clinical History: Pain Findings: No fracture or dislocation is seen. Osseous alignment is anatomic. Joint spaces are preserv ed without degenerative or erosive change. There is enthesopathic change at the quadriceps tendon ins ertion. No joint effusion is seen. Impression: Unremarkable left knee radiographs. Reviewed, dictated and finalized at location . 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
--- NOTE | ~2023-06-14 | XR_ITS ---
Right Knee Technique: AP, lateral, and sunrise views were obtained. Clinical History: Pain Findings: No fracture or dislocation is seen. Osseous alignment is anatomic. Joint spaces are preserv ed without degenerative or erosive change. There is enthesopathic change at the quadriceps tendon ins ertion. No joint effusion is seen. Impression: Unremarkable right knee radiographs. Reviewed, dictated and finalized at location . ER Impression: Unremarkable right knee radiographs.
== END ==
DX: M25.561 Pain in right knee (principal); M25.562 Pain in left knee
CPT/HCPCS: 73564

== ENCOUNTER → 2023-06-22 07:24 | Outpatient (CLI) | payer MEDICARE, SELFPAY ==
--- NOTE | ~2023-06-22 | XR_ITS ---
EXAMINATION: XR hip RT 2V w AP pelvis DATE: 06/22/2023 08:23 INDICATION: Right hip pain. TECHNIQUE: An anteroposterior view of the pelvis and 2 views of right hip were obtained. COMPARISON: None. FINDINGS: There is lumbar dextroscoliosis and severe spondylosis. No fracture. There is mild right hi p osteoarthritis and moderate left hip osteoarthritis. IMPRESSION: 1. Mild right hip osteoarthritis and moderate left hip osteoarthritis. Reviewed, dictated and finalized at location A. STITCHER
== END ==
DX: M16.0 Bilateral primary osteoarthritis of hip (principal)
CPT/HCPCS: 73502

== ENCOUNTER 2024-07-03 15:03 | Outpatient (CLI) | payer MEDICARE, SELFPAY ==
--- NOTE | ~2024-07-03 | XR_ITS ---
EXAMINATION: XR chest 2V Exam Date/Time: 07/03/2024 15:05 DRY ROOM ATTENDANT HISTORY: R05.9 - Cough, unspecified Comparison: 10/09/2022. RESULT: Lines, tubes, and devices: None. Lungs and pleura: Clear. Cardiomediastinal silhouette: Stable. Other: No acute osseous or upper abdominal finding. IMPRESSION: No acute cardiopulmonary process. Reviewed, dictated and finalized at location K. ROOM ATTENDANT
== END 2024-07-03 15:04 | disposition home or self-care (01) ==
LOC: MICIMG 15:04
PROVIDERS: PCP Nurse Practitioner Family; Visit Provider Nurse Practitioner Family
DX: R05.9 Cough, unspecified (principal)
CPT/HCPCS: 71046

== ENCOUNTER 2025-01-05 09:16 | Outpatient (CLI) | payer MEDICARE, SELFPAY ==
--- NOTE | ~2025-01-05 | MR_ITS ---
MRI of the lumbar spine Clinical History: Radiculopathy Technique: Axial T2-weighted images, and sagittal T1-weighted, T2-weighted, and T2 fat-sat images wer e acquired. Findings: There is no fracture of the lumbar spine. There is 3 mm retrolisthesis of L5 over S1. No jackson spicious bone marrow signal abnormality identified. At L1-L2, there is minimal disc bulge and moderate facet hypertrophy. No spinal canal stenosis or ruslan ral foraminal narrowing. At L2-L3, there is moderate degenerative disc narrowing. There is diffuse disc bulge and moderate to advanced facet arthropathy. There is moderate central canal stenosis/thecal sac compression. There is moderate left neural foraminal narrowing, and mild right neural foraminal narrowing. At L3-L4, there is moderate degenerative distended. There is disc bulge and severe facet arthropathy, severe spinal canal stenosis/thecal sac compression. There is severe right neural foraminal narrowin g, and moderate to advanced left neural foraminal narrowing. At L4-L5, there is advanced degenerative disc narrowing. There is disc bulge and advanced facet arthr opathy. There is minimal central canal stenosis. There is severe right neural foraminal narrowing and moderate left neural foraminal narrowing. At L5-S1, there is severe degenerative disc narrowing. There is mild disc bulge and moderate to advan yayo facet arthropathy. No central canal stenosis. There is severe bilateral neural foraminal narrowin g. Paravertebral soft tissues are unremarkable. Impression: Advanced degenerative spondylosis overall, with multilevel neural foraminal narrowing. There is sever e spinal canal stenosis/thecal sac compression L3-L4, and moderate spinal canal stenosis at L2-L3. Pl ease see details above. Reviewed, dictated and finalized at [facility]. Impression: Advanced degenerative spondylosis overall, with multilevel neural foraminal mikki rowing. There is severe spinal canal stenosis/thecal sac compression L3-L4, and moderate spinal canal stenosis at L2-L3. Please see details above.
--- NOTE | ~2025-01-05 | XR_ITS ---
XR sacroiliac joints min 3V Ordering provider: Candida Spear, CLINICAL SERVICES ASSISTANT-C History: . Sacrococcygeal disorders, not elsewhere classified . Comparison: None. FINDINGS: BONES: No acute fracture or dislocation. Degenerative changes of the spine. JOINTS: The bilateral sacroiliac joint spaces appear well maintained. No bony fusion of the sacroilia c joints or bony erosions. SOFT TISSUES: Unremarkable. IMPRESSION: NO ACUTE OSSEOUS ABNORMALITY. NORMAL SACROILIAC JOINTS. Degenerative changes of the spine. Reviewed, dictated and finalized at location A.
== END 2025-01-05 09:17 | disposition home or self-care (01) ==
PROVIDERS: PCP Internal Medicine; Visit Provider Nurse Practitioner Family
DX: M53.3 Sacrococcygeal disorders, not elsewhere classified (principal); M47.26 Other spondylosis with radiculopathy, lumbar region
CPT/HCPCS: 72148; 72202